=== PATIENT | male | born 1955 | race Two or more races ===

== ENCOUNTER 2019-12-23 15:38 | Inpatient (IN) | payer OTHER ==
[~2019-12-23] VITALS: Ht 170.2 cm; Wt 66.0 kg
[2019-12-23 18:56] LABS: Basophils # (auto) 0 10 ^3/uL (0-0.2); Basophils % (auto) 0.4 % (0.0-2.0); Eosinophils # (auto) 0 10 ^3/uL (0-0.8); Hematocrit 30.1 % (41.0-53.0); Hemoglobin 10.1 g/dL (13.5-17.5); Lymphocytes # (auto) 0.7 10 ^3/uL (0.4-5.4); Lymphocytes % (auto) 7.1 % (10.0-50.0); Mean Corpuscular Hemoglobin 29.6 pg (28.0-32.0); Mean Corpuscular Hgb Conc. 33.6 g/dL (32.0-36.0); Monocytes # (auto) 1.3 10 ^3/uL (0-1.3); Monocytes % (auto) 13.9 % (0.0-12.0); Neutrophils # (auto) 7.6 10 ^3/uL (1.6-8.6); Neutrophils % (auto) 78.6 % (37.0-80.0); Nucleated Red Blood Cells % 0.1 %; Platelet Count (auto) 356 10^3/uL (140-450); Red Blood Cells 3.43 10^6/uL (4.5-5.90); Red Cell Distribution Width 14.3 % (11.8-14.3); White Blood Cell 9.6 10^3/uL (4.4-10.8)
[2019-12-23 19:07] LABS: Potassium 4.1 mmol/L (3.5-5.1)
[2019-12-23 19:14] LABS: Albumin 2.4 g/dL (3.4-5.0); BUN/Creatinine Ratio 22.1; Bilirubin, Total 1.8 mg/dL (0.2-1.0); Calcium 8.1 mg/dL (8.5-10.1); Total Protein 7.5 g/dL (6.4-8.2)
[2019-12-23 23:37] LABS: INR 1.21 (0.9-1.15); Partial Thromboplastin Time 33.4 sec (23.0-31.2)
--- NOTE | 2019-12-24 00:05 | NUR ---
MS admit from ER WESLEY MATHIS admitted to [facility]. Patient oriented to ESEQUIEL CASTELAN RN primary RN, unit, room, bed, and unit policies regarding patient care and visiting hours. Explained plan of care to patient, patient verbalized understanding. Guards at bedside. Will continue to monitor.
[2019-12-24 00:10] VITALS: BP 156/79
[2019-12-24] MEDS ORDERED: LISI-275 PO (03:07)
[2019-12-24] MEDS ORDERED: AMLO5TAB15 PO (03:07)
[2019-12-24 04:41] VITALS: BP 114/69
--- NOTE | 2019-12-24 05:45 | NUR ---
Low Grade Fever Patient's temperature 100.0. Initiated cooling measures. Temperature recheck is 99.2. Guards at bedside. Will continue to monitor.
[2019-12-24 05:49] LABS: Urine Amorphous Crystal FEW /hpf (None Seen); Urine Bacteria NONE SEEN /hpf (None Seen); Urine Blood Negative /uL (Negative); Urine Mucus FEW (None Seen); Urine Specific Gravity 1.023 (1.001-1.035); Urine WBC 2 /hpf (0 - 3)
--- NOTE | 2019-12-24 07:20 | NUR ---
Paged Dr. Platt Paged Dr. Platt regarding low grade fever and possible test for COVID. Awaiting call back. Endorsed to AM nurse.
--- NOTE | 2019-12-24 07:30 | NUR ---
Opening Shift Note: Assumed care of patient, awake and alert. No S/S of distress/SOB or pain. Bed in lowest locked position, side rails up x 2, call light within reach. Guards at bedside. Patient instructed on POC and to call for assist PRN, will continue to monitor for changes Q1hr and PRN.
--- NOTE | 2019-12-24 07:45 | NUR ---
Spoke with gas charger Chris regarding protocol for covid testing.
[2019-12-24 08:06] LABS: Albumin 2.2 g/dL (3.4-5.0); BUN/Creatinine Ratio 25.7; Calcium 7.9 mg/dL (8.5-10.1); Potassium 4.1 mmol/L (3.5-5.1)
[2019-12-24 08:09] LABS: Bilirubin, Total 1.3 mg/dL (0.2-1.0); Total Protein 6.9 g/dL (6.4-8.2)
[2019-12-24 08:55] VITALS: BP 130/80
[2019-12-24] MEDS ORDERED: amLODIPine BESYLATE 5 MG TAB PO ONE (09:00)
[2019-12-24] MEDS ORDERED: LISINOPRIL 10 MG TAB PO ONE (09:00)
[2019-12-24] MEDS ORDERED: ACETAMINOPHEN 325 MG TAB PO PRN (09:00)
--- NOTE | 2019-12-24 09:01 | NUR ---
Received call from Dr. Platt. New orders received, read back and verified.
[2019-12-24 12:34] VITALS: BP 108/68
--- NOTE | 2019-12-24 14:08 | NUR ---
Nutrition Assessment/Consult Notes Please refer to link for full assessment notes. Est Energy needs: [id number] kcals (23-25 kcal/kgBW) Est Protein needs: 52-65 gms/day (0.8-1.0 gm/kgBW) Will continue to monitor and reassess prn. Addendum: 12/24/19 at [address] Amended: Links added.
[2019-12-24] MEDS ORDERED: PHYTONADIONE (VIT K)10 MG/ML 1ML VIAL SUBCUT ONE (15:45)
[2019-12-24 16:32] VITALS: BP 123/79
--- NOTE | 2019-12-24 18:45 | NUR ---
CLOSING NOTE: Patient resting in bed. No S/S of pain or distress at this time. Guards at bedside. Care endorsed to NOC RN.
--- NOTE | 2019-12-24 20:00 | NUR ---
Opening Shift Note Assumed care of patient, awake and alert. No S/S of distress/SOB or pain. Instructed on POC and to call for assist PRN, will continue to monitor for changes Q1hr and PRN.
[2019-12-24] MEDS: PANTOPRAZOLE 40 MG TAB PO SCH (21:19)
[2019-12-24] MEDS: ACETAMINOPHEN 325 MG TAB PO PRN (21:45)
[2019-12-24 22:00] VITALS: BP 114/68
--- NOTE | 2019-12-24 22:00 | NUR ---
Given a lot of ice chips and cooling measures to lower temperature.
[2019-12-25 05:00] VITALS: BP 107/45
[2019-12-25] MEDS: ACETAMINOPHEN 325 MG TAB PO PRN (05:03)
[2019-12-25 05:47] LABS: INR 1.09 (0.9-1.15)
--- NOTE | 2019-12-25 07:22 | NUR ---
Report given to Osiris Belle, and to to tell the doctor , no pain med for level 7-10
--- NOTE | 2019-12-25 07:30 | NUR ---
Opening Shift Note: Assumed care of patient, awake and alert. No S/S of distress/SOB or pain. Bed in lowest locked position, side rails up x 2, call light within reach. Guards at bedside. Patient instructed on POC and to call for assistance PRN, will continue to monitor for changes Q1hr and PRN.
[2019-12-25 08:44] VITALS: BP 113/70
[2019-12-25] MEDS: PANTOPRAZOLE 40 MG TAB PO SCH ×2 (09:55→21:29)
[2019-12-25 13:00] VITALS: BP 110/64
[2019-12-25] MEDS ORDERED: HYDROcodone-ACET 10/325MG TAB PO PRN (16:45)
[2019-12-25 17:00] VITALS: BP 118/72
--- NOTE | 2019-12-25 18:46 | NUR ---
CLOSING NOTE: Patient resting in bed. No S/S of distress. guards at bedside. Care endorsed to NOC RN
[2019-12-25 21:39] VITALS: BP 116/77
[2019-12-26 05:00] VITALS: BP 109/64
--- NOTE | 2019-12-26 07:20 | NUR ---
Opening Shift Note: Assumed care of patient, awake and alert. No S/S of distress/SOB or pain. Bed in lowest locked position, side rails up x 2,call light within reach. Patient instructed on POC and to callfor assist PRN, will continue to monitor for changes Q1hr and PRN.
[2019-12-26 09:00] VITALS: BP 134/82
[2019-12-26] MEDS: PANTOPRAZOLE 40 MG TAB PO SCH ×2 (09:32→22:25)
[2019-12-26] MEDS ORDERED: GADOTERIDOL 279.3mg/mL 20ml Vial IV ONE (12:29)
[2019-12-26 13:00] VITALS: BP 104/65
[2019-12-26 17:00] VITALS: BP 120/77
--- NOTE | 2019-12-26 18:50 | NUR ---
CLOSING NOTE: patient resting in bed. No S/S of distress. guards at bedside Care endorsed.
[2019-12-26 21:49] VITALS: BP 107/71
[2019-12-27 05:00] VITALS: BP 122/64
[2019-12-27] MEDS: PANTOPRAZOLE 40 MG TAB PO SCH ×2 (10:15→22:16)
[2019-12-27] MEDS: HYDROcodone-ACET 10/325MG TAB PO PRN (12:14)
--- NOTE | 2019-12-27 14:14 | NUR ---
Nutrition Followup Note Wt 66.0kg Pt was resting in bed with guards at bedside at time of rounds. Pt with a mass on liver requiring higher level of care per MD note. Pt is on a regular diet with a good appetite aeb pt with 94% po intake x 2 days per Rn note. Est Energy needs: [id number] kcals (23-25 kcal/kgBW) Est Protein needs: 52-65 gms/day (0.8-1.0 gm/kgBW) Will continue to monitor and reassess prn. Labs: Alb 2.2L, Ca 7.9L, BUN 19H BM: pt with 1 BM 12/25 per RN note Skin: BS 19 low risk, full details in special needs caregiver note PES: Altered nutrition related lab values r/t current medical condition aeb elev LFTs, hyperbilirubinemia, severe hypoalbuminemia Comments Will continue to monitor PO status, skin status, pertinent labs and weight trends. Will f/u in 3-5 days. 1) Continue to carefully monitor pt PO intake to meet at least 75% of meals 2) If albumin continues trending down consider Prostat 1 pkt BID 3) Continue current plan of care Expected Outcomes/Goals: Pt appetite to meet at least 75% PO intake Pt labs to improve
[2019-12-27 22:00] VITALS: BP 135/80
[2019-12-28 05:00] VITALS: BP 126/63
[2019-12-28 09:00] VITALS: BP 120/75
[2019-12-28] MEDS: PANTOPRAZOLE 40 MG TAB PO SCH (10:07)
[2019-12-28 12:57] VITALS: BP 138/86
[2019-12-28] MEDS: HYDROcodone-ACET 10/325MG TAB PO PRN (17:37)
--- NOTE | 2019-12-28 17:38 | NUR ---
Discharge Went over all discharge paperwork with patient. Answered questions. Removed IV intact, no problems. Removed ID band. Not a telemetry patient. Informed guards that patient is ready to go. Informed patient that in report they mentioned following up with [facility] for further care. Patient verbalized understanding.
== END 2019-12-28 18:40 | DRG 436 ==
LOC: ER 15:38 → EEVIPCON 15:39 → OVERFLOW 15:39 → WEST WING 23:49
PROVIDERS: ADMIT Internal Medicine; ATTEND Internal Medicine
DX: C22.0 Liver cell carcinoma (principal); E44.0 Moderate protein-calorie malnutrition; R16.0 Hepatomegaly, not elsewhere classified; N40.0 Benign prostatic hyperplasia without lower urinary tract symptoms; J44.9 Chronic obstructive pulmonary disease, unspecified; R63.4 Abnormal weight loss; K74.69 Other cirrhosis of liver; I10 Essential (primary) hypertension; B18.2 Chronic viral hepatitis C; Z87.891 Personal history of nicotine dependence; N20.0 Calculus of kidney; Z80.0 Family history of malignant neoplasm of digestive organs; Z20.828 Contact with and (suspected) exposure to other viral communicable diseases; Z68.22 Body mass index [BMI] 22.0-22.9, adult
CPT/HCPCS: 36415; 74176; 74183; 76705; 80053; 81001; 82105; 82140; 82150; 82378; 83605; 83690; 85025; 85610; 85730; 86301; 87426; G0378; J3430

== ENCOUNTER 2020-02-08 14:43 | Inpatient (IN) | payer OTHER ==
[~2020-02-08] VITALS: Ht 172.7 cm; Wt 57.0 kg
[~2020-02-08 14:43] MED LIST: AMLO5TAB15 PO; LISI-275 PO
[2020-02-08] MEDS ORDERED: AMLO5TAB15 PO (17:06)
[2020-02-08] MEDS ORDERED: OXY5T PO (17:06)
[2020-02-08] MEDS ORDERED: CHOL100046 PO (17:06)
[2020-02-08] MEDS ORDERED: ASPI-543 PO (17:06)
[2020-02-08] MEDS ORDERED: OMEP20TA PO (17:06)
[2020-02-08] MEDS ORDERED: LACT10PA2 PO (17:06)
[2020-02-08] MEDS ORDERED: LISI-648 PO (17:06)
[2020-02-08 17:12] LABS: Basophils # (auto) 0 10 ^3/uL (0-0.2); Basophils % (auto) 0.3 % (0.0-2.0); Eosinophils # (auto) 0 10 ^3/uL (0-0.8); Hematocrit 31.4 % (41.0-53.0); Hemoglobin 10.3 g/dL (13.5-17.5); Lymphocytes # (auto) 0.7 10 ^3/uL (0.4-5.4); Lymphocytes % (auto) 7.9 % (10.0-50.0); Mean Corpuscular Hemoglobin 28.3 pg (28.0-32.0); Mean Corpuscular Hgb Conc. 32.9 g/dL (32.0-36.0); Mean Corpuscular Volume 86.1 fL (80.0-100.0); Monocytes # (auto) 1.1 10 ^3/uL (0-1.3); Monocytes % (auto) 12.5 % (0.0-12.0); Neutrophils % (auto) 79.3 % (37.0-80.0); Nucleated Red Blood Cells % 0.1 %; Platelet Count (auto) 316 10^3/uL (140-450); Red Blood Cells 3.65 10^6/uL (4.5-5.90); Red Cell Distribution Width 18.3 % (11.8-14.3); White Blood Cell 8.8 10^3/uL (4.4-10.8)
[2020-02-08 17:26] LABS: Potassium 4.5 mmol/L (3.5-5.1); Sodium 129 mmol/L (136-145)
[2020-02-08 17:31] LABS: Alanine Aminotransferase 66 U/L (16-61); Albumin 2.2 g/dL (3.4-5.0); Amylase 26 U/L (25-115); BUN/Creatinine Ratio 23.8; Blood Urea Nitrogen 30 mg/dL (7-18); Calcium 8.8 mg/dL (8.5-10.1); Carbon Dioxide 21 mmol/L (21-32); GFR African American 74 mL/min; GFR Non-African American 61 mL/min; Glucose 92 mg/dL (74-106); Lipase 96 U/L (73-393); Magnesium 2.4 mg/dL (1.6-2.6)
[2020-02-08 17:40] LABS: Alkaline Phosphatase 401 U/L (45-117); Aspartate Aminotransferase 1366 U/L (15-37); Bilirubin, Total 2.2 mg/dL (0.2-1.0); Total Protein 7.6 g/dL (6.4-8.2)
[2020-02-08 17:58] LABS: Anion Gap 12 (5-15); Chloride 96 mmol/L (98-107)
[2020-02-08] MEDS ORDERED: OMEPRAZOLE 20MG/10ML ORAL SUSP GT ONE (21:30)
[2020-02-08 22:55] VITALS: BP 139/73
--- NOTE | 2020-02-08 23:30 | NUR ---
MST admit from ER WESLEY MATHIS admitted to [facility] unit after SBAR received. Patient oriented to Thomas mejia RN, unit, room 214, bed B, and unit policies regarding patient care and visiting hours. Patient VS taken, weighed by bedscale and encouraged to call if they need something. All questions and concerns addressed, patient verbalized understanding. Guards at bedside.
[2020-02-09] MEDS: LACTULOSE 20Gm/30ML SOLN PO SCH ×4 (00:11→21:49)
[2020-02-09] MEDS: oxyCODONE HCL 5MG TAB PO SCH ×3 (00:11→21:49)
[2020-02-09] MEDS: D5W/SOD CHL 0.45% 1,000 ML IV SCH ×4 (00:11→17:30)
[2020-02-09] MEDS: PHYTONADIONE (VIT K)10 MG/ML 1ML VIAL SUBCUT SCH ×2 (00:12→10:49)
[2020-02-09 05:00] VITALS: BP 125/79
[2020-02-09 06:44] LABS: Basophils # (auto) 0 10 ^3/uL (0-0.2); Basophils % (auto) 0.2 % (0.0-2.0); Eosinophils # (auto) 0 10 ^3/uL (0-0.8); Eosinophils % (auto) 0.1 % (0.0-7.0); Hematocrit 31.7 % (41.0-53.0); Hemoglobin 10.5 g/dL (13.5-17.5); Lymphocytes # (auto) 0.7 10 ^3/uL (0.4-5.4); Lymphocytes % (auto) 8.1 % (10.0-50.0); Mean Corpuscular Hemoglobin 28.5 pg (28.0-32.0); Mean Corpuscular Hgb Conc. 33.1 g/dL (32.0-36.0); Mean Corpuscular Volume 86.1 fL (80.0-100.0); Monocytes % (auto) 11.9 % (0.0-12.0); Neutrophils # (auto) 6.7 10 ^3/uL (1.6-8.6); Neutrophils % (auto) 79.7 % (37.0-80.0); Platelet Count (auto) 298 10^3/uL (140-450); Red Blood Cells 3.68 10^6/uL (4.5-5.90); Red Cell Distribution Width 18.1 % (11.8-14.3); White Blood Cell 8.4 10^3/uL (4.4-10.8)
[2020-02-09 07:04] LABS: Calcium 8.7 mg/dL (8.5-10.1); Potassium 3.9 mmol/L (3.5-5.1)
[2020-02-09 07:15] LABS: Albumin 2.4 g/dL (3.4-5.0); BUN/Creatinine Ratio 26.2; Bilirubin, Total 2.1 mg/dL (0.2-1.0); Total Protein 7.8 g/dL (6.4-8.2)
[2020-02-09 07:18] LABS: INR 1.15 (0.9-1.15); Partial Thromboplastin Time 33.6 sec (23.0-31.2)
[2020-02-09 08:55] VITALS: BP 137/83
[2020-02-09] MEDS: CHOLECALCIFEROL (VITD3) 2,000 UNIT CAP PO SCH (10:00)
[2020-02-09] MEDS: FAMOTIDINE 20 MG TAB PO SCH (10:00)
[2020-02-09] MEDS: LISINOPRIL 10 MG TAB PO SCH (10:48)
[2020-02-09] MEDS: amLODIPine BESYLATE 5 MG TAB PO SCH (10:49)
--- NOTE | 2020-02-09 11:50 | NUR ---
Nutrition Assessment/consult Notes please see attached link for complete assessment Est Energy needs IBW 70 [id number] kcals (25-30 kcal/kgIBW), Est Protein needs: 70-84 gms/day (1.0-1.2 gm/kgIBW). Will continue to monitor and reassess prn. Addendum: 02/09/20 at [address] Amended: Links added.
[2020-02-09 11:51] LABS: Urine Bacteria NONE SEEN /hpf (None Seen); Urine Blood Negative /uL (Negative); Urine Hyaline Cast MANY /lpf (0 - 2); Urine Mucus FEW (None Seen); Urine Specific Gravity 1.021 (1.001-1.035); Urine WBC 14 /hpf (0 - 3)
[2020-02-09 12:58] VITALS: BP 143/80
--- NOTE | 2020-02-09 15:16 | NUR ---
PATIENT WAS NOT RECEPTIVE TO P.T. EVALUATION TODAY. ATTEMPT P.T. TOMORROW.
[2020-02-09 16:35] VITALS: BP 139/81
--- NOTE | 2020-02-09 19:20 | NUR ---
Opening Shift Note Assumed care of patient after receiving report from EJ Fraire. Patient is awake and alert with no S/S of distress/SOB or pain. Call light within reach, bed in lowest locked position x2 side rails, gaurds at bedside. Instructed on POC and to call for assist PRN, will continue to monitor for changes Q1hr and PRN.
[2020-02-09 22:00] VITALS: BP 126/81
[2020-02-10] VITALS (9 sets, daily range): BP systolic 113–135; BP diastolic 58–79
[2020-02-10] MEDS: D5W/SOD CHL 0.45% 1,000 ML IV SCH ×4 (00:28→22:59)
--- NOTE | 2020-02-10 05:10 | NUR ---
CHG wipes and complete linen change performed. Patient ambulated to bathroom at this time and is currently still in bathroom attempting to have BM. Will continue to monitor and log hooker IV fluids when patient returns to bed.
[2020-02-10] MEDS: LACTULOSE 20Gm/30ML SOLN PO SCH ×4 (06:00→22:59)
--- NOTE | 2020-02-10 06:04 | NUR ---
Patient still in bathroom at this time. Patient stated he felt like he might have to have a BM. Patient instructed to call for assistance and when back in bed.
[2020-02-10 07:03] LABS: INR 1.11 (0.9-1.15); Partial Thromboplastin Time 32.1 sec (23.0-31.2)
--- NOTE | 2020-02-10 07:30 | NUR ---
Opening Shift Note RECEIVED REPORT FROM NOC RN. Assumed care of patient, awake and alert. No S/S of distress/SOB or pain. BED IN LOWEST, LOCKED POSITION WITH SIDERAILS UP x2 AND CALL LIGHT WITHIN REACH. Instructed on POC and to call for assist PRN, will continue to monitor for changes Q1hr and PRN.
[2020-02-10] MEDS: PHYTONADIONE (VIT K)10 MG/ML 1ML VIAL SUBCUT SCH (10:00)
[2020-02-10] MEDS: oxyCODONE HCL 5MG TAB PO SCH ×2 (10:00→23:00)
[2020-02-10] MEDS: amLODIPine BESYLATE 5 MG TAB PO SCH (10:00)
[2020-02-10] MEDS: LISINOPRIL 10 MG TAB PO SCH (10:00)
[2020-02-10] MEDS: FAMOTIDINE 20 MG TAB PO SCH (10:00)
[2020-02-10] MEDS: CHOLECALCIFEROL (VITD3) 2,000 UNIT CAP PO SCH (10:00)
[2020-02-10] MEDS ORDERED: LIDOCAINE 2%HCL (LOCAL ANESTH.) INJ 20ML MDV ONE (10:54)
[2020-02-10] MEDS ORDERED: GELATIN 1 SPONGE SIZE 50 TOP ONE (10:59)
[2020-02-10] MEDS ORDERED: fentaNYL CITRATE 100 MCG/2 ML VL ONE (11:11)
[2020-02-10] MEDS ORDERED: MIDAZOLAM HCL 1MG/1ML-2 ML VIAL ONE (11:11)
--- NOTE | 2020-02-10 11:12 | NUR ---
MEDICATIONS PULLED FOR RADIOLOGY PROCEDURE
[2020-02-10] MEDS: Ensure HIGH Protein Chocolate 8oz Bottle PO SCH ×2 (17:55→23:00)
--- NOTE | 2020-02-10 20:00 | NUR ---
Opening Shift Note Assumed care of patient. Awake, alert and oriented x4. No S/S of distress/SOB or pain at this time. Pt is on room air with even and unlabored respirations. Instructed on POC and to call for assist PRN. Bed locked, in lowest position, call light within reach, side rails up x2. Will continue to monitor for changes Q1hr and PRN.
[2020-02-11] MEDS: D5W/SOD CHL 0.45% 1,000 ML IV SCH ×4 (03:10→23:05)
[2020-02-11 05:00] VITALS: BP 116/74
[2020-02-11] MEDS: LACTULOSE 20Gm/30ML SOLN PO SCH ×3 (05:58→22:31)
[2020-02-11] MEDS: Ensure HIGH Protein Chocolate 8oz Bottle PO SCH ×2 (05:58→12:00)
[2020-02-11 06:23] LABS: Basophils # (auto) 0 10 ^3/uL (0-0.2); Basophils % (auto) 0.3 % (0.0-2.0); Eosinophils # (auto) 0 10 ^3/uL (0-0.8); Eosinophils % (auto) 0.1 % (0.0-7.0); Hemoglobin 9.5 g/dL (13.5-17.5); Lymphocytes # (auto) 0.8 10 ^3/uL (0.4-5.4); Lymphocytes % (auto) 11.2 % (10.0-50.0); Mean Corpuscular Hemoglobin 28.4 pg (28.0-32.0); Mean Corpuscular Hgb Conc. 32.7 g/dL (32.0-36.0); Mean Corpuscular Volume 86.7 fL (80.0-100.0); Monocytes # (auto) 0.9 10 ^3/uL (0-1.3); Monocytes % (auto) 12.7 % (0.0-12.0); Neutrophils # (auto) 5.4 10 ^3/uL (1.6-8.6); Neutrophils % (auto) 75.7 % (37.0-80.0); Nucleated Red Blood Cells % 0.1 %; Platelet Count (auto) 268 10^3/uL (140-450); Red Blood Cells 3.34 10^6/uL (4.5-5.90); White Blood Cell 7.2 10^3/uL (4.4-10.8)
[2020-02-11 06:37] LABS: Potassium 3.7 mmol/L (3.5-5.1)
[2020-02-11 06:38] LABS: INR 1.15 (0.9-1.15); Partial Thromboplastin Time 34.2 sec (23.0-31.2)
[2020-02-11 06:44] LABS: BUN/Creatinine Ratio 23.9; Bilirubin, Total 1.8 mg/dL (0.2-1.0); Total Protein 6.5 g/dL (6.4-8.2)
--- NOTE | 2020-02-11 07:02 | NUR ---
Closing shift note No S/S of distress, SOB or pain noted. Will endorse care to day shift RN
[2020-02-11 09:00] VITALS: BP 120/80
[2020-02-11] MEDS: FAMOTIDINE 20 MG TAB PO SCH (10:10)
[2020-02-11] MEDS: oxyCODONE HCL 5MG TAB PO SCH ×2 (10:10→22:32)
[2020-02-11] MEDS: LISINOPRIL 10 MG TAB PO SCH (10:11)
[2020-02-11] MEDS: amLODIPine BESYLATE 5 MG TAB PO SCH (10:11)
[2020-02-11] MEDS: PHYTONADIONE (VIT K)10 MG/ML 1ML VIAL SUBCUT SCH (10:12)
--- NOTE | 2020-02-11 11:46 | NUR ---
Patient c/o of abdominal pain /, abdomen is large and a bit tender. He also c/o hiccup and nausea. Dr. Perry paged awaiting to call back.
[2020-02-11 13:00] VITALS: BP 126/78
[2020-02-11] MEDS: CHOLECALCIFEROL (VITD3) 2,000 UNIT CAP PO SCH (14:02)
--- NOTE | 2020-02-11 14:09 | NUR ---
Nutrition Followup Note Wt 63.7kg Pt was sleeping with guards at bedside at time of rounds. Pt is with a Regular diet with 75% of one meal per Rn note. Pt was NPO 02/08 and 02/09 per RN note. WIll continue to monitor po intake and tolerance of diet. Est Energy needs IBW 70 [id number] kcals (25-30 kcal/kgIBW), Est Protein needs: 70-84 gms/day (1.0-1.2 gm/kgIBW). Will continue to monitor and reassess prn. Labs: Na 127L, BUN 22H, Ca 8.0L, Alb 2.0L BM: Pt with no BM noted per RN note Skin: BS 20 low risk, full details in skin care specialist note. PES: Altered nutrition related lab values r.t current chronic medical conidtion aeb hyperbil mod hypoalb Partially resolved, pt no longer NPO: Increased nutrient needs r/t chronic medical conidtion aeb pt`s underwt and with cancer NPO Comments 1) consider ensure enlive 1 carton tid 2) continue current plan of care Expected Outcomes/Goals: pt will have improved labs pt will not losse any more wt F/u 3-5 days
[2020-02-11 16:44] VITALS: BP 130/76
[2020-02-11] MEDS: ENSURE CLEAR Apple 8oz Carton PO SCH ×2 (18:00→22:32)
--- NOTE | 2020-02-11 19:56 | NUR ---
Opening Shift Note Assumed care of patient. Awake, alert and oriented x4. No S/S of distress/SOB or pain. Instructed on POC and to call for assist PRN. Bed locked, in lowest position, call light within reach, side rails up x2. Will continue to monitor for changes Q1hr and PRN.
[2020-02-11 22:00] VITALS: BP 129/71
[2020-02-11] MEDS: ONDANSETRON HCL 4 MG/2 ML VIAL IV PRN (23:34)
--- NOTE | 2020-02-11 23:35 | NUR ---
IV insertion IV access obtained, via clean sterile technique by inserting 22 gauge catheter at left forearm after 1 attempt. IV secured properly. No trauma to site. Patient tolerated procedure well.
[2020-02-12 05:00] VITALS: BP 119/75
[2020-02-12] MEDS: D5W/SOD CHL 0.45% 1,000 ML IV SCH ×3 (05:52→17:27)
[2020-02-12] MEDS: LACTULOSE 20Gm/30ML SOLN PO SCH ×3 (06:09→22:49)
[2020-02-12] MEDS: ONDANSETRON HCL 4 MG/2 ML VIAL IV PRN ×2 (06:10→22:50)
[2020-02-12] MEDS: ENSURE CLEAR Apple 8oz Carton PO SCH ×4 (06:10→22:49)
[2020-02-12 09:00] VITALS: BP 132/82
[2020-02-12] MEDS: LISINOPRIL 10 MG TAB PO SCH (09:56)
[2020-02-12] MEDS: amLODIPine BESYLATE 5 MG TAB PO SCH (09:56)
[2020-02-12] MEDS: oxyCODONE HCL 5MG TAB PO SCH ×2 (09:56→22:50)
[2020-02-12] MEDS: CHOLECALCIFEROL (VITD3) 1,000UNIT=25mCg TAB PO SCH (09:56)
[2020-02-12] MEDS: FAMOTIDINE 20 MG TAB PO SCH (09:56)
[2020-02-12] MEDS: PHYTONADIONE (VIT K)10 MG/ML 1ML VIAL SUBCUT SCH (10:04)
[2020-02-12 12:38] VITALS: BP 118/73
[2020-02-12 17:20] VITALS: BP 129/74
--- NOTE | 2020-02-12 19:00 | NUR ---
Opening Shift Note Assumed care of patient, awake and alert. No S/S of distress/SOB or pain. Instructed on POC and to call for assist PRN, will continue to monitor for changes Q1hr and PRN.
[2020-02-12 22:06] VITALS: BP 117/69
[2020-02-13] MEDS: D5W/SOD CHL 0.45% 1,000 ML IV SCH ×4 (01:30→16:22)
[2020-02-13 05:31] VITALS: BP 126/73
[2020-02-13] MEDS: LACTULOSE 20Gm/30ML SOLN PO SCH ×3 (06:22→22:00)
[2020-02-13] MEDS: ENSURE CLEAR Apple 8oz Carton PO SCH ×4 (06:23→22:06)
[2020-02-13 09:00] VITALS: BP 119/71
--- NOTE | 2020-02-13 09:00 | NUR ---
Hold PT, pt does not want to participate today due to nausea. RN aware.
[2020-02-13] MEDS: CHOLECALCIFEROL (VITD3) 1,000UNIT=25mCg TAB PO SCH (09:05)
[2020-02-13] MEDS: FAMOTIDINE 20 MG TAB PO SCH (09:05)
[2020-02-13] MEDS: LISINOPRIL 10 MG TAB PO SCH (09:05)
[2020-02-13] MEDS: amLODIPine BESYLATE 5 MG TAB PO SCH (09:05)
[2020-02-13] MEDS: PHYTONADIONE (VIT K)10 MG/ML 1ML VIAL SUBCUT SCH (09:06)
[2020-02-13] MEDS: oxyCODONE HCL 5MG TAB PO SCH ×2 (09:16→22:06)
[2020-02-13] MEDS: ONDANSETRON HCL 4 MG/2 ML VIAL IV PRN ×2 (09:16→20:10)
[2020-02-13 13:00] VITALS: BP 113/67
[2020-02-13 17:00] VITALS: BP 125/78
[2020-02-13 22:00] VITALS: BP 128/79
[2020-02-14] MEDS: D5W/SOD CHL 0.45% 1,000 ML IV SCH ×3 (04:10→15:41)
[2020-02-14 05:00] VITALS: BP 135/83
[2020-02-14] MEDS: LACTULOSE 20Gm/30ML SOLN PO SCH ×3 (06:24→22:00)
[2020-02-14] MEDS: ENSURE CLEAR Apple 8oz Carton PO SCH ×4 (06:24→23:35)
[2020-02-14 06:47] LABS: Calcium 7.8 mg/dL (8.5-10.1); Potassium 3.2 mmol/L (3.5-5.1)
[2020-02-14 06:53] LABS: Albumin 2.1 g/dL (3.4-5.0); BUN/Creatinine Ratio 8.8; Bilirubin, Total 1.5 mg/dL (0.2-1.0); Total Protein 6.3 g/dL (6.4-8.2)
[2020-02-14 09:00] VITALS: BP 153/91
[2020-02-14] MEDS: FAMOTIDINE 20 MG TAB PO SCH (10:27)
[2020-02-14] MEDS: CHOLECALCIFEROL (VITD3) 1,000UNIT=25mCg TAB PO SCH (10:27)
[2020-02-14] MEDS: amLODIPine BESYLATE 5 MG TAB PO SCH (10:29)
[2020-02-14] MEDS: oxyCODONE HCL 5MG TAB PO SCH ×2 (10:29→23:36)
[2020-02-14] MEDS: LISINOPRIL 10 MG TAB PO SCH (10:30)
[2020-02-14] MEDS: PHYTONADIONE (VIT K)10 MG/ML 1ML VIAL SUBCUT SCH (11:36)
[2020-02-14 12:24] VITALS: BP 131/82
[2020-02-14 13:14] LABS: INR 1.1 (0.9-1.15); Partial Thromboplastin Time 31.4 sec (23.0-31.2)
--- NOTE | 2020-02-14 13:20 | NUR ---
Patient c/o chest discomfort. BP136/74, HR-86 RR-20 O2sat 96%. Will have EKG done and will notify .
--- NOTE | 2020-02-14 13:24 | NUR ---
EKG done and charge auditor Shanice made aware of patient's complain. Patient stated that his chest pain was almost gone.
--- NOTE | 2020-02-14 13:40 | NUR ---
Phoned Dr. Platt to notify him of patient's complain and EKG reading result. MD gave new orders. Patient voiced no further c/o chest pain at this time.
[2020-02-14] MEDS: POTASSIUM CHL 20 Meq TABLET PO ONE ×2 (14:00→15:00)
--- NOTE | 2020-02-14 14:36 | NUR ---
Nutrition Followup Note Wt 62.8kg Pt was sleeping with guards at bedside at time of rounds. Pt is with a Regular diet with 25% po x1 02/11, 25% x1 02/12 and 75%x1 / per Rn note. Pt po intake was poor aeb pt with 25%x 2 per RN note, will monitor pt po intake for pt to have >75% po. Pt is also with Ensure Clear QID. Est Energy needs IBW 70 [id number] kcals (25-30 kcal/kgIBW), Est Protein needs: 70-84 gms/day (1.0-1.2 gm/kgIBW). Will continue to monitor and reassess prn. Labs: Na 135L, BUN 6L, Creat 0.68L, Alb 2.1L, Ca 7.8L BM: Pt with 2 BMs 02/13 noted per RN note Skin: BS 18 mod risk, full details in ocular care technician note. PES: Altered nutrition related lab values r.t current chronic medical conidtion aeb hyperbil mod hypoalb Partially resolved, pt no longer NPO: Increased nutrient needs r/t chronic medical conidtion aeb pt`s underwt and with cancer NPO Comments 1) consider ensure enlive 1 carton tid 2) continue current plan of care Expected Outcomes/Goals: pt will have improved labs pt will not lose any more wt F/u 3-5 days
[2020-02-14] MEDS: ONDANSETRON HCL 4 MG/2 ML VIAL IV PRN (15:07)
[2020-02-14] MEDS ORDERED: POTASSIUM EFFERVESENT TAB 25 MEQ GT ONE (15:30)
--- NOTE | 2020-02-14 15:37 | NUR ---
Patient refused potassium effervescent tablets at this time as patient stated that he had problem swallowing pills and water today. Will try again later
[2020-02-14 16:33] VITALS: BP 133/84
--- NOTE | 2020-02-14 19:15 | NUR ---
Report given to Yaniv PAGAN Patient still unable to take po potassium ordered at this time.
--- NOTE | 2020-02-14 21:15 | NUR ---
Spoke with doctor Platt and informed him about pt's refusal to take potassium and lactulose.Tried once again to persuade patient to take his meds. Pt took potassium
[2020-02-15] MEDS: D5W/SOD CHL 0.45% 1,000 ML IV SCH ×3 (00:10→13:30)
[2020-02-15 05:00] VITALS: BP 136/87
[2020-02-15] MEDS: LACTULOSE 20Gm/30ML SOLN PO SCH ×3 (06:00→22:00)
[2020-02-15 06:23] LABS: Potassium 3.5 mmol/L (3.5-5.1)
[2020-02-15 06:38] LABS: Albumin 2.1 g/dL (3.4-5.0); BUN/Creatinine Ratio 7.1; Bilirubin, Total 1.5 mg/dL (0.2-1.0); Total Protein 6.3 g/dL (6.4-8.2)
[2020-02-15] MEDS: ENSURE CLEAR Apple 8oz Carton PO SCH ×3 (06:54→17:39)
--- NOTE | 2020-02-15 07:35 | NUR ---
Opening Shift Note: Assumed care of patient. Patient asleep at this time. No S/S of distress/SOB or pain. bed in lowest locked position, side rails up x 2, call light within reach. Guards at bedside. Patient instructed on POC and to call for assist PRN, will continue to monitor for changes Q1hr and PRN.
[2020-02-15 09:00] VITALS: BP 110/74
[2020-02-15] MEDS ORDERED: IOHEXOL 300 MG/ML 100ML BOTTLE IJ ONE (10:04)
[2020-02-15] MEDS: FAMOTIDINE 20 MG TAB PO SCH (10:09)
[2020-02-15] MEDS: amLODIPine BESYLATE 5 MG TAB PO SCH (10:09)
[2020-02-15] MEDS: CHOLECALCIFEROL (VITD3) 1,000UNIT=25mCg TAB PO SCH (10:09)
[2020-02-15] MEDS: LISINOPRIL 10 MG TAB PO SCH (10:09)
[2020-02-15] MEDS: oxyCODONE HCL 5MG TAB PO SCH (10:10)
--- NOTE | 2020-02-15 10:15 | NUR ---
patient off unit for CT scan
[2020-02-15] MEDS: PANTOPRAZOLE 40 MG/10 ML VIAL INJ IV SCH (10:28)
[2020-02-15] MEDS: chlorproMAZINE INECTION 25 MG in SODIUM CHL 0.9% 50 ML IV SCH ×3 (10:28→17:01)
[2020-02-15] MEDS: PHYTONADIONE (VIT K)10 MG/ML 1ML VIAL SUBCUT SCH (10:29)
--- NOTE | 2020-02-15 10:33 | NUR ---
Patient back to floor.
[2020-02-15 13:00] VITALS: BP 114/75
[2020-02-15 17:00] VITALS: BP 101/66
--- NOTE | 2020-02-15 18:46 | NUR ---
CLOSING NOTE: PATIENT RESTING IN BED. NO S/S OF DISTRESS. GUARDS AT BEDSIDE. CARE ENDORSED.
[2020-02-15 22:00] VITALS: BP 123/68
[2020-02-16] VITALS (7 sets, daily range): BP systolic 99–143; BP diastolic 61–83
[2020-02-16] MEDS: oxyCODONE HCL 5MG TAB PO SCH ×3 (00:46→21:47)
[2020-02-16] MEDS: ENSURE CLEAR Apple 8oz Carton PO SCH ×5 (00:47→21:47)
[2020-02-16] MEDS: chlorproMAZINE INECTION 25 MG in SODIUM CHL 0.9% 50 ML IV SCH ×7 (00:47→21:43)
[2020-02-16] MEDS: D5W/SOD CHL 0.45% 1,000 ML IV SCH ×5 (00:49→23:34)
[2020-02-16] MEDS: LACTULOSE 20Gm/30ML SOLN PO SCH ×3 (06:00→21:43)
--- NOTE | 2020-02-16 07:31 | NUR ---
closing note pt resting in semi fowlers position with HOB at 30 degrees. no s/s of pain or distress. endorsed care to Janet PAGAN.
--- NOTE | 2020-02-16 09:40 | NUR ---
BLOOD PRESSURE MEDICATIONS HELD, DR BORDEN PAGED TO NOTIFY WILL AWAIT RETURN PHONE CALL. PATIENTS BP 99/61
[2020-02-16] MEDS: LISINOPRIL 10 MG TAB PO SCH (10:00)
[2020-02-16] MEDS: amLODIPine BESYLATE 5 MG TAB PO SCH (10:00)
[2020-02-16] MEDS: PANTOPRAZOLE 40 MG/10 ML VIAL INJ IV SCH (10:15)
[2020-02-16] MEDS: PHYTONADIONE (VIT K)10 MG/ML 1ML VIAL SUBCUT SCH (10:16)
[2020-02-16] MEDS: CHOLECALCIFEROL (VITD3) 1,000UNIT=25mCg TAB PO SCH (10:16)
[2020-02-16] MEDS: POTASSIUM CHL 10 Meq TABLET PO SCH ×2 (10:16→21:47)
[2020-02-16] MEDS: FAMOTIDINE 20 MG TAB PO SCH (10:16)
--- NOTE | 2020-02-16 13:55 | NUR ---
RECEIVED CALL BACK FROM DR BORDEN PER DR BORDEN IT IS OKAY TO HOLD BP MEDICATIONS TODAY. NURSE TO CALL AGAIN TOMORROW IF BP IS LOW FOR MEDICATION HOLDS.
--- NOTE | 2020-02-16 14:08 | NUR ---
Nutrition Followup Note Wt 66.4 kg Pt was sleeping with guards and RN at bedside at time of rounds. Pt is with a Regular diet with 25% PO x2 meals per RN doc. Pt is also with Ensure Clear QID. Noted pt is with hepatocellular carcinoma, with weakness and low appetite. Suggest pt receive alternative nutrition support. If GI is accessible suggest Jevity 1.2 @ 70 ml/hr goal rate as tolerated and per MD approval. Est Energy needs IBW 70 [id number] kcals (25-30 kcal/kgIBW) Est Protein needs: 70-84 gms/day (1.0-1.2 gm/kgIBW) Will continue to monitor and reassess prn. Labs: Bili 1.5 H, AST 217 H, Alk Phos 310 H, Alb 2.1 L, Ca 8.0 L BM: Pt with 1 BM on 02/15 per RN note Skin: BS 20 low risk, full details in continuum of care manager note. PES: 1) Altered nutrition related lab values r.t current chronic medical condition aeb hyperbil mod hypoalb Partially resolved, pt no longer NPO 2) Increased nutrient needs r/t chronic medical condition aeb pt`s underwt and with cancer NPO Comments 1) Consider ensure enlive 1 carton tid (Resolved) 2) Continue current plan of care If GI is accessible, consider Jevity 1.2 @ 70ml/hr goal rate as tolerated and per MD approval
[2020-02-16] MEDS: FUROSEMIDE 20 MG TAB PO SCH (18:37)
--- NOTE | 2020-02-16 19:50 | NUR ---
Opening Shift Note Assumed care of patient. Pt is awake and alert, oriented X 4. No S/S of respiratory distress. Pt denies pain at this time. Bed is in lowest locked position, bed rails up X 2, call light is within reach. Guards are at bedside. Instructed on POC and to call for assistance PRN. Will continue to monitor for changes Q1hr and PRN.
[2020-02-17] VITALS (7 sets, daily range): BP systolic 118–126; BP diastolic 65–75
[2020-02-17] MEDS: chlorproMAZINE INECTION 25 MG in SODIUM CHL 0.9% 50 ML IV SCH ×6 (01:58→22:01)
[2020-02-17] MEDS: LACTULOSE 20Gm/30ML SOLN PO SCH ×3 (05:59→22:00)
[2020-02-17] MEDS: ENSURE CLEAR Apple 8oz Carton PO SCH ×4 (05:59→22:03)
[2020-02-17] MEDS: FUROSEMIDE 20 MG TAB PO SCH ×3 (06:00→18:00)
[2020-02-17] MEDS: D5W/SOD CHL 0.45% 1,000 ML IV SCH ×3 (06:11→17:55)
[2020-02-17 07:08] LABS: Potassium 3.8 mmol/L (3.5-5.1)
[2020-02-17 07:15] LABS: BUN/Creatinine Ratio 7.7; Bilirubin, Total 1.8 mg/dL (0.2-1.0)
[2020-02-17] MEDS: oxyCODONE HCL 5MG TAB PO SCH ×2 (10:00→22:02)
[2020-02-17] MEDS: PANTOPRAZOLE 40 MG/10 ML VIAL INJ IV SCH (11:14)
[2020-02-17] MEDS: CHOLECALCIFEROL (VITD3) 1,000UNIT=25mCg TAB PO SCH (11:15)
[2020-02-17] MEDS: POTASSIUM CHL 10 Meq TABLET PO SCH ×2 (11:15→22:03)
[2020-02-17] MEDS: FAMOTIDINE 20 MG TAB PO SCH (11:15)
[2020-02-17] MEDS: PHYTONADIONE (VIT K)10 MG/ML 1ML VIAL SUBCUT SCH (11:16)
[2020-02-17] MEDS: amLODIPine BESYLATE 5 MG TAB PO SCH (11:16)
[2020-02-17] MEDS: LISINOPRIL 10 MG TAB PO SCH (11:17)
--- NOTE | 2020-02-17 17:55 | NUR ---
THORAZINE HELD 1800 DOSE PER EMAR, PATIENT SLEEPY.
--- NOTE | 2020-02-17 19:40 | NUR ---
Opening Shift Note Assumed care of patient. Pt is awake, alert, and oriented X 4. No S/S of respiratory distress. Respirations are regular and non-labored. Pt denies pain at this time. Bed is in lowest locked position, bed rails up X 2, call light is within reach. Instructed on POC and to call for assistance as needed. Will continue to monitor for changes Q1hr and PRN.
[2020-02-18] MEDS: chlorproMAZINE INECTION 25 MG in SODIUM CHL 0.9% 50 ML IV SCH ×6 (02:25→22:29)
[2020-02-18] MEDS: D5W/SOD CHL 0.45% 1,000 ML IV SCH ×4 (03:40→21:30)
[2020-02-18 05:00] VITALS: BP 106/63
[2020-02-18] MEDS: FUROSEMIDE 20 MG TAB PO SCH ×2 (05:56→18:00)
[2020-02-18] MEDS: ENSURE CLEAR Apple 8oz Carton PO SCH ×4 (05:56→22:00)
[2020-02-18] MEDS: LACTULOSE 20Gm/30ML SOLN PO SCH ×3 (05:57→22:00)
[2020-02-18 09:00] VITALS: BP 124/76
[2020-02-18] MEDS: POTASSIUM CHL 10 Meq TABLET PO SCH ×2 (11:39→22:28)
[2020-02-18] MEDS: FAMOTIDINE 20 MG TAB PO SCH (11:39)
[2020-02-18] MEDS: amLODIPine BESYLATE 5 MG TAB PO SCH (11:40)
[2020-02-18] MEDS: LISINOPRIL 10 MG TAB PO SCH (11:41)
[2020-02-18] MEDS: PHYTONADIONE (VIT K)10 MG/ML 1ML VIAL SUBCUT SCH (11:42)
[2020-02-18] MEDS: PANTOPRAZOLE 40 MG/10 ML VIAL INJ IV SCH (11:43)
[2020-02-18 13:00] VITALS: BP 120/65
[2020-02-18] MEDS: oxyCODONE HCL 5MG TAB PO SCH ×2 (14:06→22:27)
[2020-02-18] MEDS: CHOLECALCIFEROL (VITD3) 1,000UNIT=25mCg TAB PO SCH (14:06)
[2020-02-18 17:00] VITALS: BP 111/66
--- NOTE | 2020-02-18 19:45 | NUR ---
OPENING SHIFT NOTE Assumed care of patient who is A&O x4. Currently on RA with no s/s of distress. Reports 6/10 pain in left upper quadrant. Pain management options discussed. PIV in left forearm is intact and patent. Currently infusing IVF as ordered. Metal restraints present on right wrist and bilateral ankles. Armed correctional officers present at bedside x2 for supervision. Patient is ambulatory with assistance at baseline. POC discussed and patient verbalizes understanding. Bed is in low locked position with side rails up x2. Call light is within reach and patient encouraged to call for assistance when needed. Will continue to monitor for changes PRN.
[2020-02-18 22:00] VITALS: BP 132/77
--- NOTE | 2020-02-18 22:00 | NUR ---
MEDICATION REFUSAL Patient refused scheduled dose of lactulose 15mg. Informed of the rationale for this medication however, patient continues to refuse, stating that his bloating improved when he stopped taking this medication.
--- NOTE | 2020-02-18 23:42 | NUR ---
ROUNDS patient is resting in bed with eyes closed. Respirations are even and non-labored. IVF infusing as ordered. Call light is within reach. Will continue to monitor for changes PRN.
[2020-02-19] MEDS: chlorproMAZINE INECTION 25 MG in SODIUM CHL 0.9% 50 ML IV SCH ×6 (02:07→22:00)
[2020-02-19] MEDS: D5W/SOD CHL 0.45% 1,000 ML IV SCH ×4 (03:58→22:00)
[2020-02-19 05:19] VITALS: BP 118/69
[2020-02-19] MEDS: LACTULOSE 20Gm/30ML SOLN PO SCH ×3 (05:28→22:00)
[2020-02-19] MEDS: ENSURE CLEAR Apple 8oz Carton PO SCH ×4 (05:29→22:00)
[2020-02-19] MEDS: FUROSEMIDE 20 MG TAB PO SCH ×2 (05:49→18:00)
--- NOTE | 2020-02-19 05:52 | NUR ---
MEDICATION REFUSAL Patient refused scheduled dose of Lactulose 15mg and Lasix 20mg. Patient requesting that Lasix dose be reduced due to side effect of dry mouth. Will pass on to on coming shift to notify MD of patient's request.
[2020-02-19 07:35] LABS: Potassium 3.5 mmol/L (3.5-5.1)
[2020-02-19 07:47] LABS: Albumin 1.6 g/dL (3.4-5.0); BUN/Creatinine Ratio 12.3; Bilirubin, Total 1.6 mg/dL (0.2-1.0); Calcium 7.1 mg/dL (8.5-10.1); Total Protein 5.2 g/dL (6.4-8.2)
[2020-02-19 09:00] VITALS: BP 104/61
--- NOTE | 2020-02-19 11:06 | NUR ---
Nutrition Followup Note Wt 72.7 kg (+2 edema dry wt unkwn) Pt was sleeping with guards and RN at bedside at time of rounds. Pt is with a Regular diet with inadequate PO of 50% PO x4 meals per RN doc. Pt is also with Ensure Clear QID. Est Energy needs IBW 70 [id number] kcals (25-30 kcal/kgIBW), Est Protein needs: 70-84 gms/day (1.0-1.2 gm/kgIBW). Will continue to monitor and reassess prn. Labs: CA 7.1 L, SHARON 1.6 H ALB 1.6 H BM: Pt with 1 BM today per RN note Skin: BS 18 mod risk, full details in special needs caregiver note. PES: 1) Altered nutrition related lab values r.t current chronic medical condition aeb hyperbil mod hypoalb Partially resolved, pt no longer NPO 2) Increased nutrient needs r/t chronic medical condition aeb pt`s underwt and with cancer NPO Comments: will continue to monitor PO intake, skin status. F/u mod 3-5 days Rec: 1) consider prostat 1 packet bid. 2) consider ensure Enlive 1 carton bid instead of ensure clear. 3) continue current plan of care
[2020-02-19] MEDS: CHOLECALCIFEROL (VITD3) 1,000UNIT=25mCg TAB PO SCH (11:52)
[2020-02-19] MEDS: FAMOTIDINE 20 MG TAB PO SCH (11:52)
[2020-02-19] MEDS: LISINOPRIL 10 MG TAB PO SCH (11:53)
[2020-02-19] MEDS: POTASSIUM CHL 10 Meq TABLET PO SCH ×2 (11:54→22:00)
[2020-02-19] MEDS: amLODIPine BESYLATE 5 MG TAB PO SCH (11:54)
[2020-02-19] MEDS: PHYTONADIONE (VIT K)10 MG/ML 1ML VIAL SUBCUT SCH (11:55)
[2020-02-19] MEDS: PANTOPRAZOLE 40 MG/10 ML VIAL INJ IV SCH (11:55)
[2020-02-19] MEDS: oxyCODONE HCL 5MG TAB PO SCH ×2 (12:13→22:00)
[2020-02-19 13:00] VITALS: BP 108/64
--- NOTE | 2020-02-19 14:08 | NUR ---
THORAZINE HELD 1400 DOSE PER EMAR, PATIENT SLEEPY.
[2020-02-19 17:00] VITALS: BP 123/79
--- NOTE | 2020-02-19 18:00 | NUR ---
pT. REFUSED LASIX; STATES. "IT MAKES MY MOUTH TOO DRY." THIS RN EDUCATED PT. ON THE BENEFITS OF LASIX BUT HE STILL REFUSED.
--- NOTE | 2020-02-19 18:07 | NUR ---
PT. REFUSED THORAZINE INJ. PT. STATES, "I WANT A BREAK FROM IT."
--- NOTE | 2020-02-19 19:40 | NUR ---
OPENING SHIFT NOTE Assumed care of patient who is A&O x4. Currently on RA with no s/s of distress. Reports 6/10 pain in left upper quadrant and back. Pain management options discussed. PIV in left forearm is intact and currently infusing IVF as ordered. Patient complaining of discomfort to this area. elbo noted to be pink and puffy. IVF stopped at this time. Urine in urinal at bedside noted to be [place]ia [place] in color and odorless. Metal restraints present on right wrist and bilateral ankles. Armed correctional officers present at bedside x2 for supervision. Patient is ambulatory with assistance at baseline. 3+ pitting edema noted to BLE. Discussed with patient the importance of taking Lasix as scheduled. Bed is in low locked position with side rails up x2. Call light is within reach and patient encouraged to call for assistance when needed. Will continue to monitor for changes PRN.
[2020-02-19 22:00] VITALS: BP 115/67
[2020-02-20] MEDS: chlorproMAZINE INECTION 25 MG in SODIUM CHL 0.9% 50 ML IV SCH ×6 (02:00→22:00)
--- NOTE | 2020-02-20 02:00 | NUR ---
MEDICATION HELD 0200 scheduled dose held as per JUN if patienr Addendum: 02/20/20 at 0321 by AMADOR DAVILA RN RN MEDICATION HELD 0200 scheduled dose of Thorazine held as per MAR: "Hold if patient is sleepy". Patient is asleep at this time.
[2020-02-20 04:45] VITALS: BP 114/65
[2020-02-20] MEDS: D5W/SOD CHL 0.45% 1,000 ML IV SCH ×3 (04:56→20:10)
[2020-02-20] MEDS: ENSURE CLEAR Apple 8oz Carton PO SCH ×4 (05:40→22:13)
[2020-02-20] MEDS: LACTULOSE 20Gm/30ML SOLN PO SCH ×3 (05:40→21:45)
[2020-02-20] MEDS: FUROSEMIDE 20 MG TAB PO SCH ×2 (05:53→18:00)
--- NOTE | 2020-02-20 05:53 | NUR ---
MEDICATION REFUSAL Patient refused scheduled dose of lactulose and Lasix. Patient educated on rationale for each of these medications, however patient continues to refuse stating that the Lasix causes him to have dry mouth and that he is feeling better since he stopped taking the lactulose.
[2020-02-20 07:03] LABS: Albumin 1.5 g/dL (3.4-5.0); BUN/Creatinine Ratio 10.4; Bilirubin, Total 1.3 mg/dL (0.2-1.0); Calcium 7.3 mg/dL (8.5-10.1); Total Protein 5.1 g/dL (6.4-8.2)
[2020-02-20 08:30] VITALS: BP 123/69
[2020-02-20] MEDS: POTASSIUM CHL 10 Meq TABLET PO SCH ×2 (11:15→21:44)
[2020-02-20] MEDS: FAMOTIDINE 20 MG TAB PO SCH (11:15)
[2020-02-20] MEDS: amLODIPine BESYLATE 5 MG TAB PO SCH (11:15)
[2020-02-20] MEDS: CHOLECALCIFEROL (VITD3) 1,000UNIT=25mCg TAB PO SCH (11:15)
[2020-02-20] MEDS: LISINOPRIL 10 MG TAB PO SCH (11:16)
[2020-02-20] MEDS: oxyCODONE HCL 5MG TAB PO SCH ×2 (11:17→21:44)
[2020-02-20] MEDS: PANTOPRAZOLE 40 MG/10 ML VIAL INJ IV SCH (11:17)
[2020-02-20] MEDS: PHYTONADIONE (VIT K)10 MG/ML 1ML VIAL SUBCUT SCH (11:18)
[2020-02-20 12:30] VITALS: BP 108/58
[2020-02-20 17:03] VITALS: BP 109/67
--- NOTE | 2020-02-20 19:05 | NUR ---
Opening Shift Note Assumed care of patient, awake and alert. No S/S of distress/SOB or pain. Two guards at the bedside. Side rails up X2, bed locked in lowest position, call light within reach. Instructed on POC and to call for assist PRN, will continue to monitor for changes Q1hr and PRN.
[2020-02-20 22:00] VITALS: BP 112/68
[2020-02-21] MEDS: chlorproMAZINE INECTION 25 MG in SODIUM CHL 0.9% 50 ML IV SCH ×7 (02:00→22:00)
[2020-02-21] MEDS: D5W/SOD CHL 0.45% 1,000 ML IV SCH (02:58)
[2020-02-21 05:00] VITALS: BP 117/73
[2020-02-21] MEDS: LACTULOSE 20Gm/30ML SOLN PO SCH ×4 (05:03→22:00)
[2020-02-21] MEDS: ENSURE CLEAR Apple 8oz Carton PO SCH ×4 (05:04→22:00)
[2020-02-21] MEDS: FUROSEMIDE 20 MG TAB PO SCH ×3 (05:27→10:00)
[2020-02-21 06:14] LABS: Basophils # (auto) 0 10 ^3/uL (0-0.2); Basophils % (auto) 0.5 % (0.0-2.0); Eosinophils # (auto) 0.1 10 ^3/uL (0-0.8); Eosinophils % (auto) 1.7 % (0.0-7.0); Hematocrit 25.9 % (41.0-53.0); Hemoglobin 8.5 g/dL (13.5-17.5); Lymphocytes # (auto) 0.5 10 ^3/uL (0.4-5.4); Lymphocytes % (auto) 8.1 % (10.0-50.0); Mean Corpuscular Hemoglobin 28.9 pg (28.0-32.0); Mean Corpuscular Volume 87.7 fL (80.0-100.0); Monocytes # (auto) 0.8 10 ^3/uL (0-1.3); Monocytes % (auto) 11.5 % (0.0-12.0); Neutrophils # (auto) 5.2 10 ^3/uL (1.6-8.6); Neutrophils % (auto) 78.2 % (37.0-80.0); Platelet Count (auto) 209 10^3/uL (140-450); Red Blood Cells 2.95 10^6/uL (4.5-5.90); Red Cell Distribution Width 18.7 % (11.8-14.3); White Blood Cell 6.7 10^3/uL (4.4-10.8)
[2020-02-21 06:28] LABS: INR 1.18 (0.9-1.15)
[2020-02-21 09:00] VITALS: BP 111/67
[2020-02-21] MEDS: oxyCODONE HCL 5MG TAB PO SCH ×2 (10:18→22:39)
[2020-02-21] MEDS: FAMOTIDINE 20 MG TAB PO SCH (10:18)
[2020-02-21] MEDS: CHOLECALCIFEROL (VITD3) 1,000UNIT=25mCg TAB PO SCH (10:18)
[2020-02-21] MEDS: PANTOPRAZOLE 40 MG/10 ML VIAL INJ IV SCH (10:18)
[2020-02-21] MEDS: POTASSIUM CHL 10 Meq TABLET PO SCH ×2 (10:19→10:25)
[2020-02-21] MEDS: LISINOPRIL 10 MG TAB PO SCH (10:20)
[2020-02-21] MEDS: amLODIPine BESYLATE 5 MG TAB PO SCH (10:22)
[2020-02-21] MEDS: PHYTONADIONE (VIT K)10 MG/ML 1ML VIAL SUBCUT SCH (10:23)
[2020-02-21 12:19] VITALS: BP 102/61
--- NOTE | 2020-02-21 16:11 | NUR ---
instructed me to call pathology to see when the pathology for patient would result. Called pathology twice no answer . Will pass it on to report to try again in the morning.
[2020-02-21 16:54] VITALS: BP 108/60
[2020-02-21 22:07] VITALS: BP 111/70
[2020-02-22] MEDS: chlorproMAZINE INECTION 25 MG in SODIUM CHL 0.9% 50 ML IV SCH ×6 (02:00→22:49)
[2020-02-22 05:00] VITALS: BP 117/69
[2020-02-22] MEDS: LACTULOSE 20Gm/30ML SOLN PO SCH ×3 (05:46→22:00)
[2020-02-22] MEDS: ENSURE CLEAR Apple 8oz Carton PO SCH ×4 (05:48→22:00)
[2020-02-22 07:23] LABS: Albumin 1.5 g/dL (3.4-5.0); Calcium 7.8 mg/dL (8.5-10.1); Potassium 4.1 mmol/L (3.5-5.1)
[2020-02-22 07:25] LABS: BUN/Creatinine Ratio 13.3; Bilirubin, Total 1.6 mg/dL (0.2-1.0); Total Protein 5.2 g/dL (6.4-8.2)
[2020-02-22 09:00] VITALS: BP 107/61
[2020-02-22] MEDS: PANTOPRAZOLE 40 MG/10 ML VIAL INJ IV SCH (12:00)
[2020-02-22] MEDS: LISINOPRIL 10 MG TAB PO SCH (12:01)
[2020-02-22] MEDS: amLODIPine BESYLATE 5 MG TAB PO SCH (12:01)
[2020-02-22] MEDS: FAMOTIDINE 20 MG TAB PO SCH (12:02)
[2020-02-22] MEDS: CHOLECALCIFEROL (VITD3) 1,000UNIT=25mCg TAB PO SCH (12:02)
[2020-02-22] MEDS: POTASSIUM CHL 10 Meq TABLET PO SCH (12:02)
[2020-02-22] MEDS: PHYTONADIONE (VIT K)10 MG/ML 1ML VIAL SUBCUT SCH (12:03)
[2020-02-22] MEDS: FUROSEMIDE 20 MG TAB PO SCH (12:04)
[2020-02-22] MEDS: oxyCODONE HCL 5MG TAB PO SCH ×2 (12:09→22:50)
[2020-02-22 12:54] VITALS: BP 108/61
--- NOTE | 2020-02-22 13:44 | NUR ---
Spoke to he told me that the pathology from the liver biopsy is positive for CA and that he consulted with to see how to proceed with care before discharge. has been consulted awaiting for him to visit patient.
[2020-02-22 16:32] VITALS: BP 108/63
[2020-02-22 22:00] VITALS: BP 104/60
[2020-02-23] MEDS: chlorproMAZINE INECTION 25 MG in SODIUM CHL 0.9% 50 ML IV SCH ×6 (02:00→22:00)
[2020-02-23 05:00] VITALS: BP 104/60
[2020-02-23] MEDS: LACTULOSE 20Gm/30ML SOLN PO SCH ×3 (06:00→22:00)
[2020-02-23] MEDS: ENSURE CLEAR Apple 8oz Carton PO SCH ×4 (06:00→22:00)
--- NOTE | 2020-02-23 06:21 | NUR ---
MEDICATION HELD THORAZINE HELD, PATIENT DOES NOT HAVE HICCUPS THIS MORNING.
[2020-02-23 08:00] VITALS: BP 109/66
[2020-02-23 09:00] VITALS: BP 109/66
[2020-02-23] MEDS: PANTOPRAZOLE 40 MG/10 ML VIAL INJ IV SCH (10:06)
[2020-02-23] MEDS: CHOLECALCIFEROL (VITD3) 1,000UNIT=25mCg TAB PO SCH (10:07)
[2020-02-23] MEDS: PHYTONADIONE (VIT K)10 MG/ML 1ML VIAL SUBCUT SCH (10:07)
[2020-02-23] MEDS: oxyCODONE HCL 5MG TAB PO SCH ×2 (10:07→22:52)
[2020-02-23] MEDS: LISINOPRIL 10 MG TAB PO SCH (10:08)
[2020-02-23] MEDS: FAMOTIDINE 20 MG TAB PO SCH (10:08)
[2020-02-23] MEDS: POTASSIUM CHL 10 Meq TABLET PO SCH (10:08)
[2020-02-23] MEDS: FUROSEMIDE 20 MG TAB PO SCH (10:08)
[2020-02-23] MEDS: amLODIPine BESYLATE 5 MG TAB PO SCH (10:09)
--- NOTE | 2020-02-23 10:50 | NUR ---
Pt declined AM PT treatment stating he had a "rough morning." Will attempt again later.
--- NOTE | 2020-02-23 11:51 | NUR ---
Nutrition Followup Note Wt 75.9 kg (+3 edema dry wt unkwn wt gain of 2 lb) Pt was sleeping with guards and RN at bedside at time of rounds. Pt is with a Regular diet with adequate PO of 75% PO x4 meals per RN doc. Pt is also with Ensure Clear QID. Est Energy needs IBW 70 [id number] kcals (25-30 kcal/kgIBW), Est Protein needs: 70-84 gms/day (1.0-1.2 gm/kgIBW). Will continue to monitor and reassess prn. Labs: CA 7.8 L, SHARON 1.6 H ALB 1.5 H BM: Pt with 3 BM today per RN note Skin: BS 20 mod risk, full details in respiratory care instructor note. PES: 1) Altered nutrition related lab values r.t current chronic medical condition aeb hyperbil mod hypoalb Partially resolved, pt no longer NPO 2) Increased nutrient needs r/t chronic medical condition aeb pt`s underwt and with cancer NPO Comments: will continue to monitor PO intake, skin status. F/u mod 3-5 days Rec: 1) consider prostat 1 packet bid. 2) consider ensure Enlive 1 carton bid instead of ensure clear. 3) continue current plan of care
[2020-02-23 13:00] VITALS: BP 112/60
[2020-02-23 17:00] VITALS: BP 112/70
[2020-02-23 22:00] VITALS: BP 103/58
--- NOTE | 2020-02-23 22:45 | NUR ---
IV insertion IV access obtained, via clean sterile technique by inserting 22 gauge catheter at right forearm after 2 attempt(s). IV secured properly. No trauma to site. Patient tolerated well.
--- NOTE | 2020-02-23 22:50 | NUR ---
MEDICATION HELD PATIENT STATED HE HAS HAD NO HICCUPS, THEREFORE THORAZINE HELD.
[2020-02-24] MEDS: chlorproMAZINE INECTION 25 MG in SODIUM CHL 0.9% 50 ML IV SCH ×6 (02:00→21:49)
[2020-02-24 05:00] VITALS: BP 96/56
[2020-02-24] MEDS: LACTULOSE 20Gm/30ML SOLN PO SCH ×3 (05:28→21:49)
[2020-02-24] MEDS: ENSURE CLEAR Apple 8oz Carton PO SCH ×4 (05:28→21:50)
--- NOTE | 2020-02-24 07:45 | NUR ---
Opening Shift Note Assumed care of patient, awake, alert and oriented x 4. Respirations are even and non labored on room air. No S/S of distress/SOB or pain. Bed is in the lowest and locked position with side rails up x 2 and call light within reach and 2 guards at bedside. Instructed on POC and to call for assist PRN, will continue to monitor for changes Q1hr and PRN.
--- NOTE | 2020-02-24 08:23 | NUR ---
Dr Kelley at bedside Reviewed POC and answered all questions. Will continue to monitor.
[2020-02-24 09:00] VITALS: BP 109/69
[2020-02-24] MEDS: CHOLECALCIFEROL (VITD3) 1,000UNIT=25mCg TAB PO SCH (10:06)
[2020-02-24] MEDS: FAMOTIDINE 20 MG TAB PO SCH (10:06)
[2020-02-24] MEDS: PANTOPRAZOLE 40 MG/10 ML VIAL INJ IV SCH (10:06)
[2020-02-24] MEDS: POTASSIUM CHL 10 Meq TABLET PO SCH (10:06)
[2020-02-24] MEDS: oxyCODONE HCL 5MG TAB PO SCH ×2 (10:07→21:51)
[2020-02-24] MEDS: FUROSEMIDE 20 MG TAB PO SCH (10:09)
[2020-02-24] MEDS: amLODIPine BESYLATE 5 MG TAB PO SCH (10:10)
[2020-02-24] MEDS: LISINOPRIL 10 MG TAB PO SCH (10:11)
--- NOTE | 2020-02-24 10:11 | NUR ---
Medication Held Held Thorazine, patient is not having hiccups and stated that "the thorazine just makes me sleepy."
[2020-02-24 12:22] VITALS: BP 112/66
--- NOTE | 2020-02-24 13:59 | NUR ---
PT PT REFUSED PHYSICAL THERAPY THIS AFTERNOON. . Signed: 02/24/20 at 1400 by GEOVANNI WARE PTT <Co-Signature Required> Co-Signed: 02/24/20 at 1400 by Juan Antonio Vicente PT Addendum: 02/24/20 at 1400 by GEOVANNI WARE PTT Amended: Links added.
--- NOTE | 2020-02-24 14:39 | NUR ---
Med refused/held Patient refused lactulose. He stated that he's had too many issues with diarrhea and covered his face with his hand. Held thorazine as the patient isn't having any hiccups.
[2020-02-24 16:19] VITALS: BP 110/61
--- NOTE | 2020-02-24 19:30 | NUR ---
Opening Shift Note Assumed care of patient, awake and alert. No S/S of distress/SOB. Pain management options discussed with patient. Instructed on POC and to call for assist PRN, will continue to monitor for changes Q1hr and PRN.
[2020-02-24 20:00] VITALS: BP 110/65
[2020-02-24 22:15] VITALS: BP 110/65
[2020-02-25] MEDS: chlorproMAZINE INECTION 25 MG in SODIUM CHL 0.9% 50 ML IV SCH ×6 (02:00→21:33)
[2020-02-25] MEDS: LACTULOSE 20Gm/30ML SOLN PO SCH ×3 (05:21→21:34)
[2020-02-25] MEDS: ENSURE CLEAR Apple 8oz Carton PO SCH ×5 (05:21→22:10)
--- NOTE | 2020-02-25 07:30 | NUR ---
Opening Shift Note Assumed care of patient, awake and alert. Patient is an inmate with bilateral leg restraints as well as right arm restraints. No S/S of distress/SOB. Patient presents as extremely thin and yellow tinged skin color in the face. Both legs are edematous 2+ pitting. Patient complaining of pain on the right upper quadrant. Requesting higher dose of pain meds or an increase in frequency. Will follow up with hospitalist regarding a change in medication regimen. Instructed on POC and to call for assist PRN. Bed is in lowest position and the call light is within reach of the patient. Will continue to monitor for changes Q1hr and PRN.
[2020-02-25 08:00] VITALS: BP 110/65
[2020-02-25 09:00] VITALS: BP 117/65
[2020-02-25] MEDS: PANTOPRAZOLE 40 MG/10 ML VIAL INJ IV SCH (09:51)
[2020-02-25] MEDS: FAMOTIDINE 20 MG TAB PO SCH (09:52)
[2020-02-25] MEDS: POTASSIUM CHL 10 Meq TABLET PO SCH (09:52)
[2020-02-25] MEDS: CHOLECALCIFEROL (VITD3) 1,000UNIT=25mCg TAB PO SCH (09:53)
[2020-02-25] MEDS: LISINOPRIL 10 MG TAB PO SCH (09:56)
[2020-02-25] MEDS: amLODIPine BESYLATE 5 MG TAB PO SCH (09:59)
[2020-02-25] MEDS: FUROSEMIDE 20 MG TAB PO SCH (09:59)
[2020-02-25] MEDS: oxyCODONE HCL 5MG TAB PO SCH ×2 (10:05→22:00)
--- NOTE | 2020-02-25 10:35 | NUR ---
Dr. Platt at bedside Dr. Platt at bedside. Patient sleeping.
--- NOTE | 2020-02-25 11:10 | NUR ---
Medication withheld Lasix and amlodipine held for decreased BP 117/69. Dr. Platt aware. Addendum: 02/25/20 at 1549 by Alexa Barnes RN RN Medication refused Lactulose and Thorazine am doses refused by the patient. Patient reports diarrhea and an ALOC when given. MD lopez.
--- NOTE | 2020-02-25 12:45 | NUR ---
Spoke with [employer] Dispatcher Spoke with underground production foreperson concerning a substitute to the ensure Enlive. Patient states he can't drink the supplement because he "throws it up". She suggested to double his entree amount. Called nutritional services and requested the change.
[2020-02-25 13:00] VITALS: BP 108/68
--- NOTE | 2020-02-25 14:10 | NUR ---
Patient ambulating Patient stated he felt better and wanted to walk the unit. Patient walked the unit with the assistance of a walker accompanied by 2 guards with no S/S of SOB or discomfort. Will attempt to try again in the evening.
[2020-02-25 16:47] VITALS: BP 130/79
--- NOTE | 2020-02-25 21:35 | NUR ---
Pt A&Ox4. Refusing thorazine stating that "it was for hiccoughs and I'm not hiccoughing" He also refuses lactulose and Ensure Clear stating that they are too sweet and cause him "to throw up."
[2020-02-25 22:00] VITALS: BP 109/71
[2020-02-25] MEDS: ONDANSETRON HCL 4 MG/2 ML VIAL IV PRN (22:10)
[2020-02-26] MEDS: chlorproMAZINE INECTION 25 MG in SODIUM CHL 0.9% 50 ML IV SCH ×6 (02:00→21:47)
[2020-02-26 05:00] VITALS: BP 114/67
[2020-02-26] MEDS: ENSURE CLEAR Apple 8oz Carton PO SCH ×4 (06:00→21:47)
[2020-02-26] MEDS: LACTULOSE 20Gm/30ML SOLN PO SCH ×3 (06:00→21:47)
[2020-02-26] MEDS: ONDANSETRON HCL 4 MG/2 ML VIAL IV PRN (06:11)
--- NOTE | 2020-02-26 07:46 | NUR ---
Opening Shift Note Prisoner patient. Assumed care of patient, awake and alert, A/O X 4. No S/S of distress/SOB or pain at this time. shift production supervisor reported a panic attack this morning and applied a NC on the patient with 2-3L. Patient has NC in place O2 titrated down to 2L. Patient appears calm and relaxed with no signs of anxiety or restlessness. Markings noted around the ankles from the cuffs. Socks applied to help protect skin from pressing into edematous ankles. Instructed on POC including walking the unit and sitting in the bedside chair. Patient verbalized understanding. Instructed to call for assist PRN. Bed is in lowest position and the call light is within reach of the patient. Will continue to monitor for changes Q1hr and PRN.
[2020-02-26 09:00] VITALS: BP 104/65
[2020-02-26] MEDS: PANTOPRAZOLE 40 MG/10 ML VIAL INJ IV SCH (09:56)
[2020-02-26] MEDS: POTASSIUM CHL 10 Meq TABLET PO SCH (09:57)
[2020-02-26] MEDS: oxyCODONE HCL 5MG TAB PO SCH ×2 (09:57→21:47)
[2020-02-26] MEDS: FUROSEMIDE 20 MG TAB PO SCH (09:58)
[2020-02-26] MEDS: FAMOTIDINE 20 MG TAB PO SCH (09:58)
[2020-02-26] MEDS: CHOLECALCIFEROL (VITD3) 1,000UNIT=25mCg TAB PO SCH (09:58)
[2020-02-26] MEDS: LISINOPRIL 10 MG TAB PO SCH (10:00)
[2020-02-26] MEDS: amLODIPine BESYLATE 5 MG TAB PO SCH (10:00)
--- NOTE | 2020-02-26 10:28 | NUR ---
Medication refused and withheld Thorazine and ensure refused by the patient. Lisinopril and amlodipine withheld for low BP 104/65. made aware. Addendum: 02/26/20 at 1427 by Alexa Barnes RN RN 1400 Lactulose also refused by the patient.
--- NOTE | 2020-02-26 12:30 | NUR ---
Patient up with PT Patient got up with PT and walked the unit with the assist of a walker. Patient tolerated it well. No complaints of pain or distress.
[2020-02-26 13:00] VITALS: BP 106/66
[2020-02-26 17:00] VITALS: BP 106/71
[2020-02-26 22:00] VITALS: BP 108/71
[2020-02-27] MEDS: chlorproMAZINE INECTION 25 MG in SODIUM CHL 0.9% 50 ML IV SCH ×6 (01:40→22:00)
[2020-02-27] MEDS: LACTULOSE 20Gm/30ML SOLN PO SCH ×3 (05:40→22:00)
[2020-02-27 05:41] VITALS: BP 104/60
[2020-02-27] MEDS: ENSURE CLEAR Apple 8oz Carton PO SCH ×4 (05:41→22:00)
[2020-02-27 08:00] VITALS: BP 100/55
--- NOTE | 2020-02-27 08:30 | NUR ---
Dr Platt on unit.
[2020-02-27 09:00] VITALS: BP 100/55
[2020-02-27] MEDS: POTASSIUM CHL 10 Meq TABLET PO SCH (09:59)
[2020-02-27] MEDS: PANTOPRAZOLE 40 MG/10 ML VIAL INJ IV SCH (09:59)
[2020-02-27] MEDS: FUROSEMIDE 20 MG TAB PO SCH (10:00)
[2020-02-27] MEDS: amLODIPine BESYLATE 5 MG TAB PO SCH (10:01)
[2020-02-27] MEDS: CHOLECALCIFEROL (VITD3) 1,000UNIT=25mCg TAB PO SCH (10:01)
[2020-02-27] MEDS: FAMOTIDINE 20 MG TAB PO SCH (10:01)
[2020-02-27] MEDS: LISINOPRIL 10 MG TAB PO SCH (10:02)
[2020-02-27] MEDS: oxyCODONE HCL 5MG TAB PO SCH ×2 (10:20→22:01)
[2020-02-27 13:00] VITALS: BP 103/37
[2020-02-27 17:00] VITALS: BP 100/60
[2020-02-27 22:00] VITALS: BP 108/61
[2020-02-28] MEDS: chlorproMAZINE INECTION 25 MG in SODIUM CHL 0.9% 50 ML IV SCH ×6 (01:46→21:50)
[2020-02-28 05:00] VITALS: BP 113/71
[2020-02-28] MEDS: LACTULOSE 20Gm/30ML SOLN PO SCH ×3 (06:00→21:20)
[2020-02-28] MEDS: ENSURE CLEAR Apple 8oz Carton PO SCH ×4 (06:00→21:50)
[2020-02-28 06:57] LABS: Basophils # (auto) 0.1 10 ^3/uL (0-0.2); Basophils % (auto) 1.2 % (0.0-2.0); Eosinophils # (auto) 0 10 ^3/uL (0-0.8); Eosinophils % (auto) 0.8 % (0.0-7.0); Hematocrit 25.9 % (41.0-53.0); Hemoglobin 8.6 g/dL (13.5-17.5); Lymphocytes # (auto) 0.6 10 ^3/uL (0.4-5.4); Lymphocytes % (auto) 14.4 % (10.0-50.0); Mean Corpuscular Hemoglobin 29.3 pg (28.0-32.0); Mean Corpuscular Hgb Conc. 33.2 g/dL (32.0-36.0); Mean Corpuscular Volume 88.1 fL (80.0-100.0); Monocytes # (auto) 0.4 10 ^3/uL (0-1.3); Monocytes % (auto) 9.7 % (0.0-12.0); Neutrophils # (auto) 3.3 10 ^3/uL (1.6-8.6); Neutrophils % (auto) 73.9 % (37.0-80.0); Platelet Count (auto) 253 10^3/uL (140-450); Red Blood Cells 2.94 10^6/uL (4.5-5.90); Red Cell Distribution Width 19.5 % (11.8-14.3); White Blood Cell 4.5 10^3/uL (4.4-10.8)
[2020-02-28 07:07] LABS: INR 1.13 (0.9-1.15); Partial Thromboplastin Time 30.2 sec (23.0-31.2)
[2020-02-28 07:12] LABS: Albumin 1.7 g/dL (3.4-5.0); Calcium 7.8 mg/dL (8.5-10.1); Potassium 4.2 mmol/L (3.5-5.1)
[2020-02-28 07:15] LABS: BUN/Creatinine Ratio 12.5; Total Protein 5.4 g/dL (6.4-8.2)
--- NOTE | 2020-02-28 08:00 | NUR ---
OPENING SHIFT NOTE ASSUMED CARE OF PATIENT AWAKE AND ALERT. NO S/S OF DISTRESS NOTED OR COMPLAINTS OF PAIN AT THIS TIME. PATIENT UPDATED ON POC FOR THE DAY AND ALL QUESTIONS ANSWERED. BED IS IN LOWEST, LOCKED POSITION WITH SIDE RAILS UP X2, CALL LIGHT WITHIN REACH, AND GUARDS AT BEDSIDE FOR SAFETY. WILL CONTINUE TO MONITOR Q1H AND PRN.
[2020-02-28 09:00] VITALS: BP 113/66
[2020-02-28] MEDS: PANTOPRAZOLE 40 MG/10 ML VIAL INJ IV SCH (09:43)
[2020-02-28] MEDS: oxyCODONE HCL 5MG TAB PO SCH ×2 (09:44→21:20)
[2020-02-28] MEDS: FUROSEMIDE 20 MG TAB PO SCH (09:44)
[2020-02-28] MEDS: CHOLECALCIFEROL (VITD3) 1,000UNIT=25mCg TAB PO SCH (09:44)
[2020-02-28] MEDS: POTASSIUM CHL 10 Meq TABLET PO SCH (09:44)
[2020-02-28] MEDS: FAMOTIDINE 20 MG TAB PO SCH (09:44)
[2020-02-28] MEDS: LISINOPRIL 10 MG TAB PO SCH (09:44)
[2020-02-28] MEDS: amLODIPine BESYLATE 5 MG TAB PO SCH (09:44)
--- NOTE | 2020-02-28 11:12 | NUR ---
Nutrition Followup Note Wt 72.0 kg Pt was sleeping with guards and RN at bedside at time of rounds. Pt is with a Regular diet with adequate PO of 75% PO x4 meals per RN doc. Pt is also with Ensure Clear QID. Est Energy needs IBW 70 [id number] kcals (25-30 kcal/kgIBW), Est Protein needs: 70-84 gms/day (1.0-1.2 gm/kgIBW). Will continue to monitor and reassess prn. Labs: CA 7.8 L, ALB 1.7 L BM: Pt with 3 BM today per RN note Skin: BS 16 mod risk, full details in reproductive healthcare assistant note. PES: 1) Altered nutrition related lab values r.t current chronic medical condition aeb hyperbil mod hypoalb Partially resolved, pt no longer NPO 2) Increased nutrient needs r/t chronic medical condition aeb pt`s underwt and with cancer NPO Comments: will continue to monitor PO intake, skin status. F/u low 5-7 days Rec: 1) consider prostat 1 packet bid. 2) consider ensure Enlive 1 carton bid instead of ensure clear. 3) continue current plan of care
[2020-02-28 13:00] VITALS: BP 113/73
[2020-02-28 17:00] VITALS: BP 120/74
--- NOTE | 2020-02-28 19:30 | NUR ---
IV SITE IS RED AND INFLAMED. REMOVED AND APPLIED A STERILE DRESSING. NOTED.
--- NOTE | 2020-02-28 20:10 | NUR ---
PATIENT COMPLAINED OF SOB. ASSESSMENT DONE AND O2 SAT IS 93-94% ROOM AIR. PATIENT APPEARED COMFORTABLE. REPOSITIONED TO COMFORT. ADMINISTERED O2 PER PATIENT'S REQUEST. O2 @ 1 LPM/NC GIVEN. WILL FOLLOW UP.
[2020-02-28 22:00] VITALS: BP 125/77
[2020-02-29] MEDS: chlorproMAZINE INECTION 25 MG in SODIUM CHL 0.9% 50 ML IV SCH ×7 (01:58→21:22)
[2020-02-29] MEDS: LACTULOSE 20Gm/30ML SOLN PO SCH ×3 (05:09→21:22)
[2020-02-29] MEDS: ENSURE CLEAR Apple 8oz Carton PO SCH ×4 (05:10→22:00)
--- NOTE | 2020-02-29 05:32 | NUR ---
PATIENT REFUSED THORAZINE. CONSEQUENCES EXPLAINED, BUT STILL REFUSED.
[2020-02-29 06:00] VITALS: BP 136/78
--- NOTE | 2020-02-29 07:50 | NUR ---
Opening Shift Note Assumed care of patient, awake and alert. No S/S of distress/SOB or pain. Instructed on POC and to call for assist PRN, will continue to monitor for changes Q1hr and PRN. Bed locked in lowest position with two side rails up and call light in reach.
--- NOTE | 2020-02-29 07:55 | NUR ---
PATIENT HAS SLIGHT TEMP OF 99.3. PATIENT REFUSING TO TAKE COVERS OFF STATES HE LIKES TO BE WARM AND DOES THIS ON THE UNIT, EVEN IF HE HAS CHILLS. I EDUCATED PATIENT ON THE NEED TO TAKE BLANKETS OFF TO DECREASE MILD TEMP, AND IF TEMP GOES HIGHER WE MAY NEED TO PLACE ICE BAGS UNDER ARMS, AND PER PATIENT THIS IS DISTASTEFUL. PATIENT VERBALIZED UNDERSTANDING AND CONTINUES WITH BLANKET.
[2020-02-29 08:00] VITALS: BP 116/62
--- NOTE | 2020-02-29 08:06 | NUR ---
PATIENT REFUSING THORAZINE STATES IT MAKES HIM SLEEPY, AND MUSCLES TIGHT.
[2020-02-29 09:00] VITALS: BP 116/62
[2020-02-29] MEDS: PANTOPRAZOLE 40 MG/10 ML VIAL INJ IV SCH (09:14)
[2020-02-29] MEDS: FAMOTIDINE 20 MG TAB PO SCH (09:15)
[2020-02-29] MEDS: oxyCODONE HCL 5MG TAB PO SCH ×2 (09:15→21:22)
[2020-02-29] MEDS: CHOLECALCIFEROL (VITD3) 1,000UNIT=25mCg TAB PO SCH (09:16)
[2020-02-29] MEDS: FUROSEMIDE 20 MG TAB PO SCH (09:16)
[2020-02-29] MEDS: LISINOPRIL 10 MG TAB PO SCH (09:16)
[2020-02-29] MEDS: POTASSIUM CHL 10 Meq TABLET PO SCH (09:17)
[2020-02-29] MEDS: amLODIPine BESYLATE 5 MG TAB PO SCH (09:17)
[2020-02-29 13:00] VITALS: BP 115/71
--- NOTE | 2020-02-29 13:00 | NUR ---
PATIENT REFUSING THORAZINE AND LACTULOSE. BLOOD PRESSURE MEDICATIONS ALSO HELD DUE TO BP 114/62 MEDICATIONS INCLUDE NORVASC 5 MG AND ZESTRIL [address] BORDEN NOTIFIED, PER DR BORDEN IT IS OK FOR ME TO HOLD BP MEDS AND HE WILL TALK TO PATIENT REGARDING OTHER MEDICATIONS.
[2020-02-29 16:54] VITALS: BP 131/83
--- NOTE | 2020-02-29 20:29 | NUR ---
DR. BORDEN PAGED PATIENT REPORTING 9/10 ABDOMINAL PAIN AT [facility]. PATIENT STATES HE CAN NOT WAIT UNTIL 2200 DOSE OF SCHEDULED PAIN MEDICATION. REQUESTING BREAKTHROUGH PAIN MEDICATION.
[2020-02-29 22:00] VITALS: BP 106/68
[2020-03-01] MEDS: chlorproMAZINE INECTION 25 MG in SODIUM CHL 0.9% 50 ML IV SCH ×4 (01:38→13:35)
[2020-03-01 05:04] VITALS: BP 115/71
[2020-03-01] MEDS: LACTULOSE 20Gm/30ML SOLN PO SCH ×3 (06:00→22:00)
[2020-03-01] MEDS: ENSURE CLEAR Apple 8oz Carton PO SCH ×4 (06:00→22:00)
--- NOTE | 2020-03-01 07:30 | NUR ---
RECEIVED REPORT FROM NIGHT NURSE. PATIENT RESTING IN BED, NO DISTRESS NOTED. 2 GUARDS AT BEDSIDE. HANDCUFF TO RIGHT WRIST, FOAM DRESSING TO WRIST FOR COMFORT. SHACKLES TO BILATERAL ANKLES, FOAM DRESSINGS FOR COMFORT. WILL CONTINUE TO MONITOR.
[2020-03-01 09:00] VITALS: BP 109/63
[2020-03-01] MEDS: PANTOPRAZOLE 40 MG/10 ML VIAL INJ IV SCH (09:46)
[2020-03-01] MEDS: oxyCODONE HCL 5MG TAB PO PRN ×3 (09:46→22:27)
[2020-03-01] MEDS: CHOLECALCIFEROL (VITD3) 1,000UNIT=25mCg TAB PO SCH (09:47)
[2020-03-01] MEDS: POTASSIUM CHL 10 Meq TABLET PO SCH (09:47)
[2020-03-01] MEDS: FAMOTIDINE 20 MG TAB PO SCH (09:47)
[2020-03-01] MEDS: FUROSEMIDE 20 MG TAB PO SCH (09:49)
[2020-03-01] MEDS: LISINOPRIL 10 MG TAB PO SCH (09:53)
[2020-03-01] MEDS: amLODIPine BESYLATE 5 MG TAB PO SCH (09:53)
--- NOTE | 2020-03-01 10:00 | NUR ---
PATIENT REFUSED THORAZINE. BLOOD PRESSURE MEDS HELD FOR DECREASED BLOOD PRESSURE 109/63 DR BORDEN AWARE.
[2020-03-01 13:00] VITALS: BP 100/59
--- NOTE | 2020-03-01 13:40 | NUR ---
PATIENT REFUSED THORAZINE AND LACTULOSE. STATED THAT THEY UPSET HIS STOMACH AND THE LACTULOSE MAKES HIM, "SHIT A LOT". EDUCATION PROVIDED. DR. BODREN AWARE THAT PATIENT CONTINUES TO REFUSE ORDERED MEDICATIONS.
[2020-03-01 16:58] VITALS: BP 117/67
[2020-03-01 22:00] VITALS: BP 114/74
[2020-03-02 05:00] VITALS: BP 126/82
[2020-03-02] MEDS: oxyCODONE HCL 5MG TAB PO PRN ×3 (05:03→20:37)
[2020-03-02] MEDS: LACTULOSE 20Gm/30ML SOLN PO SCH ×3 (06:00→21:29)
[2020-03-02] MEDS: ENSURE CLEAR Apple 8oz Carton PO SCH ×4 (06:00→21:29)
--- NOTE | 2020-03-02 07:25 | NUR ---
Opening Note Assumed pt care from NAWAF RN. Pt is a/ox4 with no s/s of distress or SOB. Pt is currently laying in bed with no complaints at this time. Discussed POC with pt. Safety measures maintained with call light within reach, bed in lowest position and side rails up. Will continue to monitor for changes.
[2020-03-02] MEDS: LISINOPRIL 10 MG TAB PO SCH (08:57)
[2020-03-02] MEDS: POTASSIUM CHL 10 Meq TABLET PO SCH (08:59)
[2020-03-02] MEDS: PANTOPRAZOLE 40 MG/10 ML VIAL INJ IV SCH (08:59)
[2020-03-02] MEDS: FAMOTIDINE 20 MG TAB PO SCH (08:59)
[2020-03-02] MEDS: CHOLECALCIFEROL (VITD3) 1,000UNIT=25mCg TAB PO SCH (08:59)
[2020-03-02] MEDS: FUROSEMIDE 20 MG TAB PO SCH (09:00)
[2020-03-02] MEDS: amLODIPine BESYLATE 5 MG TAB PO SCH (09:00)
[2020-03-02 09:51] VITALS: BP 117/73
[2020-03-02 13:00] VITALS: BP 110/73
--- NOTE | 2020-03-02 13:32 | NUR ---
Pt Refused Lactulose Pt states "I don't need that". Provided pt with education regarding purpose of, pt still refused.
[2020-03-02 17:00] VITALS: BP 107/69
[2020-03-02 22:00] VITALS: BP 113/68
[2020-03-03 05:00] VITALS: BP 115/74
[2020-03-03] MEDS: LACTULOSE 20Gm/30ML SOLN PO SCH ×3 (05:45→20:51)
[2020-03-03] MEDS: oxyCODONE HCL 5MG TAB PO PRN ×3 (05:48→20:51)
--- NOTE | 2020-03-03 07:30 | NUR ---
OPENING SHIFT NOTE ASSUMED CARE OF PATIENT AWAKE AND ALERT. NO S/S OF DISTRESS NOTED OR COMPLAINTS OF PAIN AT THIS TIME. PATIENT UPDATED ON POC FOR THE DAY AND ALL QUESTIONS ANSWERED. BED IS IN LOWEST, LOCKED POSITION WITH SIDE RAILS UP X2, CALL LIGHT WITHIN REACH, AND GUARDS AT BEDSIDE FOR SAFETY. WILL CONTINUE CARE.
[2020-03-03 09:00] VITALS: BP 110/67
[2020-03-03] MEDS: PANTOPRAZOLE 40 MG/10 ML VIAL INJ IV SCH (09:57)
[2020-03-03] MEDS: FAMOTIDINE 20 MG TAB PO SCH (09:57)
[2020-03-03] MEDS: POTASSIUM CHL 10 Meq TABLET PO SCH (09:57)
[2020-03-03] MEDS: LISINOPRIL 10 MG TAB PO SCH (09:58)
[2020-03-03] MEDS: FUROSEMIDE 20 MG TAB PO SCH (09:58)
[2020-03-03] MEDS: amLODIPine BESYLATE 5 MG TAB PO SCH (09:58)
[2020-03-03] MEDS: CHOLECALCIFEROL (VITD3) 1,000UNIT=25mCg TAB PO SCH (09:58)
[2020-03-03] MEDS: ENSURE CLEAR Apple 8oz Carton PO SCH ×3 (12:00→20:51)
[2020-03-03 13:00] VITALS: BP 113/68
--- NOTE | 2020-03-03 14:00 | NUR ---
Patient refusing scheduled Lactulose at this time.
--- NOTE | 2020-03-03 14:35 | NUR ---
PAIN Patient complains of left sided abdominal pain at this time. Patient rates pain 7/10. Will medicate with Oxycodone as per MD orders and continue to monitor pain.
[2020-03-03 17:26] VITALS: BP 99/60
[2020-03-03 22:39] VITALS: BP 129/73
[2020-03-04] MEDS: oxyCODONE HCL 5MG TAB PO PRN ×4 (04:08→22:36)
[2020-03-04] MEDS: ENSURE CLEAR Apple 8oz Carton PO SCH ×4 (05:04→20:55)
[2020-03-04] MEDS: LACTULOSE 20Gm/30ML SOLN PO SCH ×3 (05:04→20:55)
[2020-03-04 05:29] VITALS: BP 105/61
[2020-03-04 08:43] VITALS: BP 107/63
[2020-03-04] MEDS: PANTOPRAZOLE 40 MG/10 ML VIAL INJ IV SCH (10:17)
[2020-03-04] MEDS: POTASSIUM CHL 10 Meq TABLET PO SCH (10:17)
[2020-03-04] MEDS: FUROSEMIDE 20 MG TAB PO SCH (10:18)
[2020-03-04] MEDS: amLODIPine BESYLATE 5 MG TAB PO SCH (10:18)
[2020-03-04] MEDS: CHOLECALCIFEROL (VITD3) 1,000UNIT=25mCg TAB PO SCH (10:19)
[2020-03-04] MEDS: FAMOTIDINE 20 MG TAB PO SCH (10:19)
[2020-03-04] MEDS: LISINOPRIL 10 MG TAB PO SCH (10:19)
--- NOTE | 2020-03-04 11:06 | NUR ---
PATIENT SAYS HES VEGETARIAN AND DOESN'T LIKE THE FOOD HERE. EDITED DIET TO REFECT VEGETARIAN.
--- NOTE | 2020-03-04 12:06 | NUR ---
Nutrition Followup Note Wt 72.0 kg Pt was sleeping with guards and RN at bedside at time of rounds. Pt is with a Regular diet with adequate PO of 75% PO x4 meals per RN doc. Pt is also with Ensure Clear QID. Est Energy needs IBW 70 [id number] kcals (25-30 kcal/kgIBW), Est Protein needs: 70-84 gms/day (1.0-1.2 gm/kgIBW). Will continue to monitor and reassess prn. Labs: no new labs today 02/27: CA 7.8 L, ALB 1.7 L BM: Pt with 1 BM today per RN note Skin: BS 20 low risk, full details in career development facilitator note. PES: 1) Altered nutrition related lab values r.t current chronic medical condition aeb hyperbil mod hypoalb Partially resolved, pt no longer NPO 2) Increased nutrient needs r/t chronic medical condition aeb pt`s underwt and with cancer NPO Comments: will continue to monitor PO intake, skin status. F/u low 5-7 days Rec: 1) consider prostat 1 packet bid. 2) consider ensure Enlive 1 carton bid instead of ensure clear. 3) continue current plan of care
[2020-03-04 13:00] VITALS: BP 111/63
--- NOTE | 2020-03-04 14:00 | NUR ---
Patient refused lactulose states he doesn't take it anymore. aware.
[2020-03-04 16:26] VITALS: BP 103/63
[2020-03-04 22:48] VITALS: BP 100/58
[2020-03-05] MEDS: oxyCODONE HCL 5MG TAB PO PRN ×3 (04:38→20:39)
[2020-03-05 05:11] VITALS: BP 106/64
[2020-03-05] MEDS: LACTULOSE 20Gm/30ML SOLN PO SCH ×3 (05:51→22:30)
[2020-03-05] MEDS: ENSURE CLEAR Apple 8oz Carton PO SCH ×4 (05:51→22:00)
--- NOTE | 2020-03-05 07:30 | NUR ---
Opening Shift Note Assuming care of patient at this time. Patient is awake and alert. Patient denies pain. Patient shows no signs or symptoms of distress or shortness of breath. Bed is locked and lowered with side rails up x2. Instructed patient on the plan of care for today and to call for assistance as needed. Call light within reach. Will continue to round hourly and as needed.
[2020-03-05 08:31] VITALS: BP 110/67
[2020-03-05] MEDS: amLODIPine BESYLATE 5 MG TAB PO SCH (10:57)
[2020-03-05] MEDS: FAMOTIDINE 20 MG TAB PO SCH (10:58)
[2020-03-05] MEDS: CHOLECALCIFEROL (VITD3) 1,000UNIT=25mCg TAB PO SCH (10:58)
[2020-03-05] MEDS: LISINOPRIL 10 MG TAB PO SCH (10:59)
[2020-03-05] MEDS: POTASSIUM CHL 10 Meq TABLET PO SCH (10:59)
[2020-03-05] MEDS: PANTOPRAZOLE 40 MG/10 ML VIAL INJ IV SCH (11:00)
[2020-03-05] MEDS: FUROSEMIDE 20 MG TAB PO SCH (11:03)
[2020-03-05 12:06] VITALS: BP 91/59
--- NOTE | 2020-03-05 16:06 | NUR ---
Refusing Bladder Scan Patient states that he has not urinated all day. Took bladder scanner into patient's room. Patient is refusing bladder scan at this time. Patient states that if he needed to urinate that he could but he just chooses not to. Educated patient that he may be retaining urine and not feel the urge. Patient states, "that's not happening." Again, offered bladder scan, patient states, "I'd rather not." Will notify MD.
--- NOTE | 2020-03-05 16:15 | NUR ---
Page to Dr. Platt Page to Dr. Platt at this time. Awaiting callback.
[2020-03-05 16:49] VITALS: BP 105/69
--- NOTE | 2020-03-05 17:30 | NUR ---
Bathroom Patient ambulated to bathroom and used toilet. Patient states he urinated.
--- NOTE | 2020-03-05 18:57 | NUR ---
Closing Shift Note Patient resting in bed. No distress noted. Will give report and endorse care to the shift supervisor RN.
--- NOTE | 2020-03-05 19:14 | NUR ---
Closing Shift Note Patient resting in bed. No distress noted. Will give report and endorse care to the overnight babysitter RN.
--- NOTE | 2020-03-05 20:15 | NUR ---
open note assumed care of pt, upon entering room pt awake and alert on room air with no respiratory distress noted or expressed. pt guards at bedside. pt oriented to this nurse and updated on plan of care. pt bed locked, low and 2x rails up. call light in reach, pt encouraged to call as needed. pt has urinal at bedside. this nurse to round q1hr and prn.
[2020-03-05 22:00] VITALS: BP 125/67
--- NOTE | 2020-03-06 01:22 | NUR ---
pt tearful. states hopelessness given diagnosis and prognosis given. this nurse discussed with pt at length his concerns and wishes. pt requests grief counseling. this nurse to follow up with information regarding the availability of this in this inpatient setting. pt also states he wants to "find a hospice thats willing to take me". this nurse will also endorse this to oncoming nurse for follow up. pt states "if i go back to the medical facility," referring to medical institution associated with his incarceration, "i wouldnt be getting any of the meds im getting here, pain med guillermo". whereas dr goddard's note indicated that this belief of this patient is inaccurate
[2020-03-06 05:00] VITALS: BP 111/67
[2020-03-06] MEDS: oxyCODONE HCL 5MG TAB PO PRN ×3 (05:31→23:27)
[2020-03-06] MEDS: LACTULOSE 20Gm/30ML SOLN PO SCH ×3 (05:43→22:00)
[2020-03-06] MEDS: ENSURE CLEAR Apple 8oz Carton PO SCH ×4 (06:00→23:27)
[2020-03-06 07:21] LABS: Basophils # (auto) 0 10 ^3/uL (0-0.2); Basophils % (auto) 0.8 % (0.0-2.0); Eosinophils # (auto) 0 10 ^3/uL (0-0.8); Eosinophils % (auto) 0.2 % (0.0-7.0); Hematocrit 26.6 % (41.0-53.0); Hemoglobin 8.8 g/dL (13.5-17.5); Lymphocytes # (auto) 0.8 10 ^3/uL (0.4-5.4); Mean Corpuscular Hemoglobin 29.1 pg (28.0-32.0); Mean Corpuscular Hgb Conc. 32.9 g/dL (32.0-36.0); Mean Corpuscular Volume 88.4 fL (80.0-100.0); Monocytes # (auto) 0.8 10 ^3/uL (0-1.3); Monocytes % (auto) 13.6 % (0.0-12.0); Neutrophils # (auto) 4.1 10 ^3/uL (1.6-8.6); Neutrophils % (auto) 71.4 % (37.0-80.0); Platelet Count (auto) 246 10^3/uL (140-450); Red Blood Cells 3.01 10^6/uL (4.5-5.90); Red Cell Distribution Width 18.6 % (11.8-14.3); White Blood Cell 5.7 10^3/uL (4.4-10.8)
[2020-03-06 07:30] LABS: Albumin 1.5 g/dL (3.4-5.0); Potassium 4.1 mmol/L (3.5-5.1)
[2020-03-06 07:34] LABS: BUN/Creatinine Ratio 21.9; Bilirubin, Total 1.1 mg/dL (0.2-1.0); Total Protein 5.5 g/dL (6.4-8.2)
[2020-03-06 09:00] VITALS: BP 109/65
[2020-03-06] MEDS: amLODIPine BESYLATE 5 MG TAB PO SCH (10:00)
[2020-03-06] MEDS: LISINOPRIL 10 MG TAB PO SCH (10:00)
[2020-03-06] MEDS: PANTOPRAZOLE 40 MG/10 ML VIAL INJ IV SCH (10:00)
[2020-03-06] MEDS: FAMOTIDINE 20 MG TAB PO SCH (10:14)
[2020-03-06] MEDS: POTASSIUM CHL 10 Meq TABLET PO SCH (10:14)
[2020-03-06] MEDS: FUROSEMIDE 20 MG TAB PO SCH (10:14)
[2020-03-06] MEDS: CHOLECALCIFEROL (VITD3) 1,000UNIT=25mCg TAB PO SCH (10:14)
[2020-03-06 13:00] VITALS: BP 102/63
[2020-03-06 17:00] VITALS: BP 103/65
--- NOTE | 2020-03-06 19:38 | NUR ---
Closing Shift Note Patient resting in bed. No distress noted. Will give report and endorse care to the supervisor rough end RN. Guards at bedside.
--- NOTE | 2020-03-06 20:00 | NUR ---
Opening Shift Note Assumed care of patient. Awake, alert and oriented x4. No S/S of distress/SOB or pain. Pt is on 2L NC with even and unlabored respirations. Instructed on POC and to call for assist PRN. Will continue to monitor for changes Q1hr and PRN.
[2020-03-06 22:00] VITALS: BP 110/71
[2020-03-07 05:00] VITALS: BP 103/70
[2020-03-07] MEDS: LACTULOSE 20Gm/30ML SOLN PO SCH ×3 (05:40→21:24)
[2020-03-07] MEDS: ENSURE CLEAR Apple 8oz Carton PO SCH ×4 (05:41→21:24)
[2020-03-07] MEDS: oxyCODONE HCL 5MG TAB PO PRN ×3 (05:41→21:42)
--- NOTE | 2020-03-07 07:30 | NUR ---
Opening Shift Note Assuming care of patient at this time. Patient is awake and alert. Patient denies pain. Patient shows no signs or symptoms of distress or shortness of breath. Bed is locked and lowered with side rails up x2. Instructed patient on the plan of care for today and to call for assistance as needed. Call light within reach. guards at bedside per fpc protocol, Will continue to round hourly and as needed.
[2020-03-07 08:00] VITALS: BP 115/72
[2020-03-07] MEDS: PANTOPRAZOLE 40 MG/10 ML VIAL INJ IV SCH (10:53)
[2020-03-07] MEDS: FAMOTIDINE 20 MG TAB PO SCH (10:53)
[2020-03-07] MEDS: CHOLECALCIFEROL (VITD3) 1,000UNIT=25mCg TAB PO SCH (10:53)
--- NOTE | 2020-03-07 10:53 | NUR ---
IV TO RIGHT HAND/WRIST INFILTRATED,DISCONTINUED, ATTEMPTED TO START X 2, PAUL MONAHAN NURSE STARTED g#22 TO RIGHT FOREARM Addendum: 03/07/20 at 1804 by Paloma Reed RN RN @ [id number] IV TO LEFT HAND NOT RIGHT
[2020-03-07] MEDS: POTASSIUM CHL 10 Meq TABLET PO SCH (10:54)
[2020-03-07] MEDS: amLODIPine BESYLATE 5 MG TAB PO SCH (10:54)
[2020-03-07] MEDS: FUROSEMIDE 20 MG TAB PO SCH (10:54)
[2020-03-07] MEDS: LISINOPRIL 10 MG TAB PO SCH (10:55)
[2020-03-07 12:00] VITALS: BP 113/78
--- NOTE | 2020-03-07 15:01 | NUR ---
Assessment This is a 64-year-old white male, who alert and oriented. Patient is incarcerated inmate at [facility] in [place]. Prior to admission to [facility] patient uses a wheel at the [facility] facility and can do all ADLs independently. Since admission at [facility], patient ambulates with physical therapy via walker and oxygen therapy. Patient has history of hepatocellular carcinoma and hepatitis C. Discharge planning: Patient is waiting for a [facility] bed to open to determine discharge transfer. Addendum: 03/07/20 at 1502 by MISHA ESTEVEZ Amended: Links added.
--- NOTE | 2020-03-07 15:04 | NUR ---
Consultation Patient requested for speak with a Metal Fabricator Welder or other counselors regarding anxiety, fear and hopelessness. Patient declined consultation from plier worker. SW ask patient again, if he wants to speak with a Metal Fabricator Welder or counselor for his diagnoses and patient declined services. Addendum: 03/07/20 at 1507 by MISHA PATE SS Amended: Links added.
[2020-03-07 17:00] VITALS: BP 102/70
[2020-03-07 20:00] VITALS: BP 115/72
[2020-03-07 22:00] VITALS: BP 108/71
--- NOTE | 2020-03-08 02:51 | NUR ---
PT RESTING COMFORTABLY WITH NO COMPLAINTS OF PAIN. CALL LIGHT IN REACH WITH GUARDS PRESENT.
[2020-03-08] MEDS: oxyCODONE HCL 5MG TAB PO PRN ×3 (04:50→22:39)
[2020-03-08 05:00] VITALS: BP 110/75
[2020-03-08] MEDS: ENSURE CLEAR Apple 8oz Carton PO SCH ×4 (06:00→22:39)
[2020-03-08] MEDS: LACTULOSE 20Gm/30ML SOLN PO SCH ×3 (06:00→22:38)
--- NOTE | 2020-03-08 07:30 | NUR ---
Opening Shift Note Assuming care of patient at this time. Patient is awake and alert. Patient denies pain. Patient shows no signs or symptoms of distress or shortness of breath. Bed is locked and lowered with side rails up x2. Instructed patient on the plan of care for today and to call for assistance as needed. Call light within reach. guards at bedside per retirement protocol, Will continue to round hourly and as needed.
[2020-03-08 09:00] VITALS: BP 106/62
--- NOTE | 2020-03-08 09:15 | NUR ---
OOB AMBULATE WITH P.T. IN HALLWAY,BACK TO ROOM TOLERATED ACTIVITY
[2020-03-08] MEDS: PANTOPRAZOLE 40 MG/10 ML VIAL INJ IV SCH (11:20)
[2020-03-08] MEDS: amLODIPine BESYLATE 5 MG TAB PO SCH (11:21)
[2020-03-08] MEDS: POTASSIUM CHL 10 Meq TABLET PO SCH (11:21)
[2020-03-08] MEDS: FUROSEMIDE 20 MG TAB PO SCH (11:21)
[2020-03-08] MEDS: CHOLECALCIFEROL (VITD3) 1,000UNIT=25mCg TAB PO SCH (11:22)
[2020-03-08] MEDS: LISINOPRIL 10 MG TAB PO SCH (11:22)
[2020-03-08] MEDS: FAMOTIDINE 20 MG TAB PO SCH (11:23)
[2020-03-08 13:00] VITALS: BP 102/65
[2020-03-08 14:17] VITALS: BP 118/75
--- NOTE | 2020-03-08 14:44 | NUR ---
C/O RIGHT SIDE ABDOMINAL PAIN,SCALE OF 6/10,OXYCODONE 10 MG PO GIVEN
[2020-03-08 17:00] VITALS: BP 116/71
--- NOTE | 2020-03-08 19:30 | NUR ---
OPENING SHIFT NOTE PT IS RESTING IN BED. NO S/S OF ANY DISTRESS NOTED. GUARDS AT BEDSIDE. PT WITH RIGHT WRIST CUFFED TO SIDE RAIL. SKIN IS CDI. BED IS LOW, WHEELS ARE LOCKED, AND CALL LIGHT IS WITH IN REACH.
[2020-03-08 22:00] VITALS: BP 105/69
--- NOTE | 2020-03-08 22:40 | NUR ---
PT STATES THAT HE WILL TAKE SCHEDULED LACTULOSE IF HE CAN DILUTE WITH WATER. PT ALSO C/O THAT MEDICATION , " MAKES ME VOMIT."
[2020-03-09 05:00] VITALS: BP 106/69
[2020-03-09] MEDS: LACTULOSE 20Gm/30ML SOLN PO SCH ×3 (06:00→21:57)
[2020-03-09] MEDS: oxyCODONE HCL 5MG TAB PO PRN ×4 (06:00→20:07)
[2020-03-09] MEDS: ENSURE CLEAR Apple 8oz Carton PO SCH ×4 (06:15→22:00)
--- NOTE | 2020-03-09 06:48 | NUR ---
PT HAS REFUSED LACTULOSE THIS AM.
--- NOTE | 2020-03-09 08:00 | NUR ---
Opening Shift Note Assumed care of patient, awake and alert. No S/S of distress/SOB, 6/10 right upper abdominal pain. Instructed on POC and to call for assist PRN, will continue to monitor for changes Q1hr and PRN.
[2020-03-09 09:00] VITALS: BP 104/66
[2020-03-09] MEDS: LISINOPRIL 10 MG TAB PO SCH (09:58)
[2020-03-09] MEDS: PANTOPRAZOLE 40 MG/10 ML VIAL INJ IV SCH (09:58)
[2020-03-09] MEDS: amLODIPine BESYLATE 5 MG TAB PO SCH (09:59)
[2020-03-09] MEDS: POTASSIUM CHL 10 Meq TABLET PO SCH (09:59)
[2020-03-09] MEDS: CHOLECALCIFEROL (VITD3) 1,000UNIT=25mCg TAB PO SCH (09:59)
[2020-03-09] MEDS: FAMOTIDINE 20 MG TAB PO SCH (10:00)
[2020-03-09] MEDS: FUROSEMIDE 20 MG TAB PO SCH (10:00)
[2020-03-09 13:00] VITALS: BP 105/69
--- NOTE | 2020-03-09 13:07 | NUR ---
Nutrition Followup Note Wt 68.8 kg Pt was sleeping with guards and RN at bedside at time of rounds. Pt is with a Regular diet with adequate PO of 75% PO x4 meals per RN doc. Pt is also with Ensure Clear QID. Est Energy needs IBW 70 [id number] kcals (25-30 kcal/kgIBW), Est Protein needs: 70-84 gms/day (1.0-1.2 gm/kgIBW). Will continue to monitor and reassess prn. Labs: Gluc 73 L, Ca 8.0 L, Alb 1.5 L, Bili 1.1 H, AST 367 H, Alk Phos 280 H BM: Pt with 1 BM on 03/08 per RN note Skin: BS 20 low risk, full details in care connector note. PES: 1) Altered nutrition related lab values r.t current chronic medical condition aeb hyperbil mod hypoalb Partially resolved, pt no longer NPO 2) Increased nutrient needs r/t chronic medical condition aeb pt`s underweight and with cancer NPO Comments: will continue to monitor PO intake, skin status. F/u low 5-7 days Rec: 1) consider prostat 1 packet bid. 2) consider ensure Enlive 1 carton bid instead of ensure clear. 3) continue current plan of care
[2020-03-09 16:54] VITALS: BP 114/70
--- NOTE | 2020-03-09 19:35 | NUR ---
GUARDS AT BEDSIDE. PT WITH RIGHT WRIST HANDCUFFED TO THE SIDE RAIL AND SKIN IS CDI.
--- NOTE | 2020-03-09 19:35 | NUR ---
OPENING SHIFT NOTE PT IS RESTING IN BED AWAKE AND ALERT. NO S/S OF ANY DISTRESS NOTED. POC DISCUSSED WITH PT AND PT VERBALIZES UNDERSTANDING. BED IS LOW, WHEELS ARE LOCKED, AND CALL LIGHT IS WITH IN REACH.
[2020-03-09 22:00] VITALS: BP 113/71
[2020-03-10] MEDS: oxyCODONE HCL 5MG TAB PO PRN ×4 (02:14→22:20)
[2020-03-10 05:30] VITALS: BP 115/75
[2020-03-10] MEDS: ENSURE CLEAR Apple 8oz Carton PO SCH ×3 (06:48→22:00)
[2020-03-10 09:04] VITALS: BP 103/62
[2020-03-10] MEDS: POTASSIUM CHL 10 Meq TABLET PO SCH (09:40)
[2020-03-10] MEDS: PANTOPRAZOLE 40 MG/10 ML VIAL INJ IV SCH (09:40)
[2020-03-10] MEDS: FAMOTIDINE 20 MG TAB PO SCH (09:40)
[2020-03-10] MEDS: FUROSEMIDE 20 MG TAB PO SCH (09:41)
[2020-03-10] MEDS: amLODIPine BESYLATE 5 MG TAB PO SCH (09:41)
[2020-03-10] MEDS: LISINOPRIL 10 MG TAB PO SCH (09:41)
[2020-03-10] MEDS: CHOLECALCIFEROL (VITD3) 1,000UNIT=25mCg TAB PO SCH (09:41)
[2020-03-10 11:56] VITALS: BP 109/70
[2020-03-10 16:57] VITALS: BP 104/63
[2020-03-10 22:00] VITALS: BP 118/68
[2020-03-11 05:00] VITALS: BP 112/70
[2020-03-11] MEDS: ENSURE CLEAR Apple 8oz Carton PO SCH ×4 (05:27→22:00)
[2020-03-11] MEDS: oxyCODONE HCL 5MG TAB PO PRN ×3 (05:27→19:26)
[2020-03-11 08:34] VITALS: BP 107/67
[2020-03-11] MEDS: PANTOPRAZOLE 40 MG/10 ML VIAL INJ IV SCH (10:05)
[2020-03-11] MEDS: FAMOTIDINE 20 MG TAB PO SCH (10:05)
[2020-03-11] MEDS: FUROSEMIDE 20 MG TAB PO SCH (10:06)
[2020-03-11] MEDS: POTASSIUM CHL 10 Meq TABLET PO SCH (10:06)
[2020-03-11] MEDS: CHOLECALCIFEROL (VITD3) 1,000UNIT=25mCg TAB PO SCH (10:06)
[2020-03-11 13:26] VITALS: BP 110/69
[2020-03-11 16:52] VITALS: BP 110/70
--- NOTE | 2020-03-11 19:30 | NUR ---
Opening Shift Note Assumed care of patient, awake and alert. Guards at the bedside. No S/S of distress/SOB or pain. Bed locked in the lowest position, side rails up X2, call light within reach. Instructed on POC and to call for assist PRN, will continue to monitor for changes Q1hr and PRN.
[2020-03-11 22:00] VITALS: BP 111/69
[2020-03-12] MEDS: oxyCODONE HCL 5MG TAB PO PRN ×4 (01:20→23:41)
[2020-03-12 05:00] VITALS: BP 112/69
[2020-03-12] MEDS: ENSURE CLEAR Apple 8oz Carton PO SCH ×4 (06:00→22:00)
[2020-03-12 06:19] LABS: Basophils # (auto) 0 10 ^3/uL (0-0.2); Basophils % (auto) 0.8 % (0.0-2.0); Eosinophils # (auto) 0 10 ^3/uL (0-0.8); Eosinophils % (auto) 0.4 % (0.0-7.0); Hematocrit 32.5 % (41.0-53.0); Hemoglobin 10.4 g/dL (13.5-17.5); Lymphocytes # (auto) 1.2 10 ^3/uL (0.4-5.4); Lymphocytes % (auto) 20.1 % (10.0-50.0); Mean Corpuscular Hemoglobin 28.7 pg (28.0-32.0); Mean Corpuscular Hgb Conc. 32.1 g/dL (32.0-36.0); Mean Corpuscular Volume 89.2 fL (80.0-100.0); Monocytes # (auto) 0.7 10 ^3/uL (0-1.3); Monocytes % (auto) 11.7 % (0.0-12.0); Neutrophils # (auto) 4.1 10 ^3/uL (1.6-8.6); Nucleated Red Blood Cells % 0.1 %; Platelet Count (auto) 271 10^3/uL (140-450); Red Blood Cells 3.64 10^6/uL (4.5-5.90); Red Cell Distribution Width 18.9 % (11.8-14.3); White Blood Cell 6.1 10^3/uL (4.4-10.8)
[2020-03-12 06:35] LABS: Albumin 1.7 g/dL (3.4-5.0); Potassium 4.7 mmol/L (3.5-5.1)
[2020-03-12 06:40] LABS: BUN/Creatinine Ratio 12.2; Bilirubin, Total 1.3 mg/dL (0.2-1.0); Total Protein 6.1 g/dL (6.4-8.2)
[2020-03-12 08:36] VITALS: BP 105/68
[2020-03-12] MEDS: PANTOPRAZOLE 40 MG/10 ML VIAL INJ IV SCH (10:05)
[2020-03-12] MEDS: FUROSEMIDE 20 MG TAB PO SCH (10:06)
[2020-03-12] MEDS: CHOLECALCIFEROL (VITD3) 1,000UNIT=25mCg TAB PO SCH (10:06)
[2020-03-12] MEDS: POTASSIUM CHL 10 Meq TABLET PO SCH (10:06)
[2020-03-12] MEDS: FAMOTIDINE 20 MG TAB PO SCH (10:06)
[2020-03-12 13:00] VITALS: BP 106/67
--- NOTE | 2020-03-12 13:46 | NUR ---
PAGED MD BORDEN RE: PATIENT PAIN MEDICATION EXPIRING. AWAITING CALL BACK
--- NOTE | 2020-03-12 14:50 | NUR ---
ROUNDING MD BORDEN AT BEDSIDE. ALL QUESTIONS AND CONCERNS ADDRESSED AT THIS TIME.
--- NOTE | 2020-03-12 14:55 | NUR ---
BRANDON CONDE PER MD BORDEN WOULD LIKE TO KNOW IF PROCEDURE CAN BE PERFORMED AT AN EARLIER DATE. AWAITING CALL BACK Addendum: 03/12/20 at 1536 by LUISA DIAZ RN RN INCORRECT PATIENT
--- NOTE | 2020-03-12 15:22 | NUR ---
BRANDON SEXTON RETURNED PAGE PER VENEREAL DISEASE INVESTIGATOR THEY WILL CLEAR PATIENT FOR OUTPATIENT PROCEDURE. PRIMARY RN WILL UPDATE Addendum: 03/12/20 at 1611 by LUISA DIAZ RN RN INCORRECT PATIENT
--- NOTE | 2020-03-12 15:32 | NUR ---
AMAYA BORDEN RE: BRANDON SEXTON WITH UROLOGY. AWAITING CALL BACK Addendum: 03/12/20 at 1821 by LUISA DIAZ RN RN INCORRECT PATIENT
[2020-03-12 17:00] VITALS: BP 113/68
--- NOTE | 2020-03-12 19:05 | NUR ---
Opening Shift Note Assumed care of patient, awake and alert. Patient on 2L N/C with no S/S of distress/SOB or pain. Guards at the beside, Bed locked in the lowest position, side rails up x2, call light within reach. Instructed on POC and to call for assist PRN, will continue to monitor for changes Q1hr and PRN.
[2020-03-12 21:42] VITALS: BP 116/59
--- NOTE | 2020-03-12 22:20 | NUR ---
ROUNDS PATIENT ASLEEP IN THE LOW FOWLERS POSITION. NO SIGNS OF DISTRESS/ SOB AT THIS TIME.
--- NOTE | 2020-03-13 03:30 | NUR ---
ROUNDS PATIENT RESTING IN THE HIGH FOWLERS POSITION. NO SIGNS OF DISTRESS/ SOB AT THIS TIME. CONTINUE CARE.
[2020-03-13 05:00] VITALS: BP 124/68
[2020-03-13] MEDS: ENSURE CLEAR Apple 8oz Carton PO SCH ×4 (05:56→21:41)
--- NOTE | 2020-03-13 06:04 | NUR ---
ROUNDS PATIENT ASLEEP IN THE LOW FOWLERS POSITION. NO SIGNS OF DISTRESS/ SOB AT THIS TIME. WILL CONTINUE CARE.
[2020-03-13 09:00] VITALS: BP 113/69
[2020-03-13] MEDS: PANTOPRAZOLE 40 MG/10 ML VIAL INJ IV SCH (09:08)
[2020-03-13] MEDS: POTASSIUM CHL 10 Meq TABLET PO SCH (09:12)
[2020-03-13] MEDS: FAMOTIDINE 20 MG TAB PO SCH (09:12)
[2020-03-13] MEDS: CHOLECALCIFEROL (VITD3) 1,000UNIT=25mCg TAB PO SCH (09:12)
[2020-03-13] MEDS: FUROSEMIDE 20 MG TAB PO SCH (09:13)
[2020-03-13 13:50] VITALS: BP 108/69
[2020-03-13 16:38] VITALS: BP 116/71
[2020-03-13] MEDS: ONDANSETRON HCL 4 MG/2 ML VIAL IV PRN (20:32)
[2020-03-13] MEDS ORDERED: oxyCODONE HCL 5MG TAB ONE ×2 (21:28→21:35)
[2020-03-13] MEDS: oxyCODONE HCL 5MG TAB PO PRN (21:38)
--- NOTE | 2020-03-13 21:42 | NUR ---
PATIENT REFUSED ENSURE DRINK 250 ML PATIENT WOULD LIKE SOY ONLY.
[2020-03-13 22:00] VITALS: BP 120/72
[2020-03-14 04:53] VITALS: BP 119/70
[2020-03-14] MEDS: ENSURE CLEAR Apple 8oz Carton PO SCH ×4 (06:00→22:00)
[2020-03-14 09:07] VITALS: BP 113/71
[2020-03-14] MEDS: ONDANSETRON HCL 4 MG/2 ML VIAL IV PRN (10:44)
[2020-03-14] MEDS: FAMOTIDINE 20 MG TAB PO SCH (10:45)
[2020-03-14] MEDS: CHOLECALCIFEROL (VITD3) 1,000UNIT=25mCg TAB PO SCH (10:45)
[2020-03-14] MEDS: oxyCODONE HCL 5MG TAB PO PRN (10:45)
[2020-03-14] MEDS: POTASSIUM CHL 10 Meq TABLET PO SCH (10:45)
[2020-03-14] MEDS: FUROSEMIDE 20 MG TAB PO SCH (10:46)
[2020-03-14] MEDS: PANTOPRAZOLE 40 MG TAB PO SCH (10:46)
--- NOTE | 2020-03-14 11:29 | NUR ---
Nutrition Followup Note Wt 65.8 kg Pt was sleeping with guards and RN at bedside at time of rounds. Pt is with a Regular diet with inadequate intake of ave of 42% PO x6 meals per RN doc. Pt is also with Ensure Clear QID, which pt refused this a.m. Per RN note pt wants only soy drinks instead. Est Energy needs IBW 70 [id number] kcals (25-30 kcal/kgIBW), Est Protein needs: 70-84 gms/day (1.0-1.2 gm/kgIBW). Will continue to monitor and reassess prn. Labs: Gluc 62 L, Ca 8.0 L, Alb 1.7 L, Bili 1.3 H, AST 514 H, Alk Phos 302 H BM: Pt with 1 BM today per RN note Skin: BS 19 low risk, full details in care tech note. PES: 1) Altered nutrition related lab values r.t current chronic medical condition aeb hyperbil mod hypoalb Partially resolved, pt no longer NPO 2) Increased nutrient needs r/t chronic medical condition aeb pt`s underweight and with cancer NPO Comments: will continue to monitor PO intake, skin status. F/u low 5-7 days Rec: 1) consider prostat 1 packet bid. 2) consider ensure Enlive 1 carton bid instead of ensure clear. 3) continue current plan of care
[2020-03-14 13:19] VITALS: BP 120/72
[2020-03-14 16:25] VITALS: BP 109/71
--- NOTE | 2020-03-14 19:20 | NUR ---
Opening Shift Note Assumed care of patient, awake and alert. No S/S of distress/SOB or pain. Instructed on POC and to call for assist PRN, will continue to monitor for changes Q1hr and PRN. Guards at bedside. Bed locked and in lowest position with call light in reach.
[2020-03-14 22:01] VITALS: BP 123/72
[2020-03-15] MEDS: oxyCODONE HCL 5MG TAB PO PRN ×4 (00:03→19:47)
[2020-03-15 05:19] VITALS: BP 116/76
--- NOTE | 2020-03-15 07:45 | NUR ---
Opening Shift Note Assumed care of patient, awake, alert, and oriented. No S/S of distress/SOB or pain. Bed in lowest/locked position, bed rails up x2, call light within reach. Instructed on POC and to call for assist PRN. Will continue to monitor for changes Q1hr and PRN.
[2020-03-15 08:25] VITALS: BP 117/74
[2020-03-15] MEDS: FAMOTIDINE 20 MG TAB PO SCH (08:52)
[2020-03-15] MEDS: POTASSIUM CHL 10 Meq TABLET PO SCH (08:52)
[2020-03-15] MEDS: PANTOPRAZOLE 40 MG TAB PO SCH (08:52)
[2020-03-15] MEDS: CHOLECALCIFEROL (VITD3) 1,000UNIT=25mCg TAB PO SCH (08:53)
[2020-03-15] MEDS: FUROSEMIDE 20 MG TAB PO SCH (08:53)
[2020-03-15] MEDS: ENSURE CLEAR Apple 8oz Carton PO SCH ×3 (12:00→22:53)
[2020-03-15 13:11] VITALS: BP 107/67
[2020-03-15 16:37] VITALS: BP 111/69
--- NOTE | 2020-03-15 19:10 | NUR ---
Opening Shift Note Assumed care of patient, awake and alert. No S/S of distress/SOB. Instructed on POC and to call for assist PRN, will continue to monitor for changes Q1hr and PRN. Pt is an inmate with guards at the bedside. Bed locked and in the lowest position with call light in reach.
[2020-03-15 22:00] VITALS: BP 122/75
[2020-03-16 05:00] VITALS: BP 120/70
--- NOTE | 2020-03-16 08:00 | NUR ---
Opening Shift Note Assumed care of patient, awake, alert, and oriented. No S/S of distress/SOB or pain. Bed in lowest/locked position, bed rails up x2, call light within reach. Guards at bedside. Instructed on POC and to call for assist PRN. Will continue to monitor for changes Q1hr and PRN.
[2020-03-16 09:00] VITALS: BP 120/81
[2020-03-16] MEDS: FUROSEMIDE 20 MG TAB PO SCH (09:13)
[2020-03-16] MEDS: POTASSIUM CHL 10 Meq TABLET PO SCH (09:14)
[2020-03-16] MEDS: FAMOTIDINE 20 MG TAB PO SCH (09:14)
[2020-03-16] MEDS: PANTOPRAZOLE 40 MG TAB PO SCH (09:14)
[2020-03-16] MEDS: oxyCODONE HCL 5MG TAB PO PRN ×2 (09:15→19:59)
[2020-03-16] MEDS: CHOLECALCIFEROL (VITD3) 1,000UNIT=25mCg TAB PO SCH (09:15)
--- NOTE | 2020-03-16 11:30 | NUR ---
[facility] STUDENT ACCOUNTS MANAGER UPDATED
[2020-03-16] MEDS: ENSURE CLEAR Apple 8oz Carton PO SCH ×3 (12:00→22:00)
[2020-03-16 13:00] VITALS: BP 123/73
[2020-03-16 17:00] VITALS: BP 122/74
--- NOTE | 2020-03-16 19:30 | NUR ---
Opening note Patient resting in bed with even and unlabored respirations on room air, no distress noted. Instructed patient on POC, fall precautions and to call for assistance as needed. Patient verbalized understanding. Fall precautions in place with call light within reach.
[2020-03-16 22:00] VITALS: BP 129/80
--- NOTE | 2020-03-16 22:48 | NUR ---
Patient resting in bed with one eye closed and one eye open; respirations even and unlabored on room air, no distress noted. Patient sleeps with one eye open per the guards at bedside.
--- NOTE | 2020-03-17 02:57 | NUR ---
Care endorsed to EJ Morales. Patient resting in bed with even and unlabored respirations, no distress noted. Fall precautions in place with call light within reach.
--- NOTE | 2020-03-17 03:10 | NUR ---
Opening Shift Note Assumed care of patient, pt asleep verbally awake and alert. No S/S of distress/SOB or pain. Instructed on POC and to call for assist PRN, will continue to monitor for changes Q1hr and PRN.
[2020-03-17 05:00] VITALS: BP 120/74
[2020-03-17] MEDS: ENSURE CLEAR Apple 8oz Carton PO SCH ×4 (06:00→21:50)
[2020-03-17] MEDS: oxyCODONE HCL 5MG TAB PO PRN ×2 (06:31→12:24)
[2020-03-17 09:04] VITALS: BP 114/74
[2020-03-17] MEDS: POTASSIUM CHL 10 Meq TABLET PO SCH (09:19)
[2020-03-17] MEDS: CHOLECALCIFEROL (VITD3) 1,000UNIT=25mCg TAB PO SCH (09:20)
[2020-03-17] MEDS: FUROSEMIDE 20 MG TAB PO SCH (09:20)
[2020-03-17] MEDS: PANTOPRAZOLE 40 MG TAB PO SCH (09:20)
[2020-03-17] MEDS: FAMOTIDINE 20 MG TAB PO SCH (09:20)
[2020-03-17 12:42] VITALS: BP 124/69
[2020-03-17 17:03] VITALS: BP 122/88
[2020-03-18 00:32] VITALS: BP 120/74
[2020-03-18 05:56] VITALS: BP 128/79
[2020-03-18] MEDS: ENSURE CLEAR Apple 8oz Carton PO SCH ×4 (06:00→22:00)
--- NOTE | 2020-03-18 07:17 | NUR ---
closing note endorsed care to EJ Dobbins. No sign of distress/pain at this time
[2020-03-18] MEDS: oxyCODONE HCL 5MG TAB PO PRN ×3 (08:18→18:38)
[2020-03-18 08:30] VITALS: BP 117/70
[2020-03-18] MEDS: CHOLECALCIFEROL (VITD3) 1,000UNIT=25mCg TAB PO SCH (09:51)
[2020-03-18] MEDS: POTASSIUM CHL 10 Meq TABLET PO SCH (09:51)
[2020-03-18] MEDS: FAMOTIDINE 20 MG TAB PO SCH (09:51)
[2020-03-18] MEDS: PANTOPRAZOLE 40 MG TAB PO SCH (09:51)
[2020-03-18] MEDS: FUROSEMIDE 20 MG TAB PO SCH (09:52)
[2020-03-18 13:42] VITALS: BP 120/78
[2020-03-18 16:28] VITALS: BP 126/73
--- NOTE | 2020-03-18 19:30 | NUR ---
Opening shift note Assumed care from day shift RNShilpi. Patient sleeping in semi-fowlers position, respirations even and non-labored without s/s of distress at this time. O2 at 3L NC. Safety precautions in place, bed in lowest locked position with 2 side rails up, call light within reach. Patient currently in cuffs with two guards bedside. Will continue to monitor Q1hr and PRN.
[2020-03-19] MEDS: oxyCODONE HCL 5MG TAB PO PRN ×3 (00:50→18:51)
--- NOTE | 2020-03-19 03:22 | NUR ---
Computers down Unable to access EMAR for documentation. Patient given PRN pain medication Oxycodon per EMAR at 0050 hrs for 6/10 pain. Patient tolerated well. Will continue to monitor.
[2020-03-19] MEDS: ENSURE CLEAR Apple 8oz Carton PO SCH ×4 (06:00→22:00)
[2020-03-19 06:23] VITALS: BP 113/66
--- NOTE | 2020-03-19 06:55 | NUR ---
Patient Resting Patient respirations even and non-labored with no s/s of distress at this time.
[2020-03-19 08:59] VITALS: BP 117/75
[2020-03-19] MEDS: POTASSIUM CHL 10 Meq TABLET PO SCH (09:43)
[2020-03-19] MEDS: FUROSEMIDE 20 MG TAB PO SCH (09:43)
[2020-03-19] MEDS: CHOLECALCIFEROL (VITD3) 1,000UNIT=25mCg TAB PO SCH (09:44)
[2020-03-19] MEDS: PANTOPRAZOLE 40 MG TAB PO SCH (09:45)
[2020-03-19] MEDS: FAMOTIDINE 20 MG TAB PO SCH (09:46)
[2020-03-19 11:55] VITALS: BP 113/76
--- NOTE | 2020-03-19 13:00 | NUR ---
Nutrition Followup Note Wt 62 kg Pt was receiving medications from Rn at time of rounds. Pt reports appetite is not great. Pt had diarrhea off and on. reports some nausea. Pt appetite appears to be poor aeb pt with 42% po intake 03/18, pt refusing oral supplement. Est Energy needs IBW 70 [id number] kcals (25-30 kcal/kgIBW), Est Protein needs: 70-84 gms/day (1.0-1.2 gm/kgIBW). Will continue to monitor and reassess prn. Labs: Na 134L, GLUC 62L, Alb 1.7L, Ca 8.0L, T bili 1.3H BM: Pt with 1 BM 03/15 per RN note Skin: BS 16 mod risk, full details in pediatric care coordinator note. PES: 1) Altered nutrition related lab values r.t current chronic medical condition aeb hyperbil mod hypoalb Partially resolved, pt no longer NPO 2) Increased nutrient needs r/t chronic medical condition aeb pt`s underweight and with cancer NPO Comments: will continue to monitor PO intake, skin status. F/u low 5-7 days Rec: 1) consider prostat 1 packet bid. 2) consider ensure Enlive 1 carton bid instead of ensure clear. 3) continue current plan of care
[2020-03-19 17:00] VITALS: BP 114/75
--- NOTE | 2020-03-19 19:25 | NUR ---
Opening shift note Assumed care of patient from day shift RNKina. Patient sitting up in bed A&Ox4, respirations even and non-labored with no s/s of distress or c/o pain at this time. Discussed POC with patient who verbalized understanding, bed in lowest locked position with 2 side rails up. Patient cuffed to right side. Call light within reach, two guards bedside. Will continue to monitor Q1hr and PRN.
[2020-03-19 22:00] VITALS: BP 117/75
[2020-03-20] MEDS: oxyCODONE HCL 5MG TAB PO PRN ×3 (01:03→18:16)
[2020-03-20 05:14] VITALS: BP 129/77
[2020-03-20] MEDS: ENSURE CLEAR Apple 8oz Carton PO SCH ×4 (05:28→22:00)
[2020-03-20 06:16] LABS: Basophils # (auto) 0 10 ^3/uL (0-0.2); Basophils % (auto) 0.4 % (0.0-2.0); Eosinophils # (auto) 0 10 ^3/uL (0-0.8); Hematocrit 30.3 % (41.0-53.0); Hemoglobin 9.8 g/dL (13.5-17.5); Lymphocytes # (auto) 1.4 10 ^3/uL (0.4-5.4); Lymphocytes % (auto) 17.8 % (10.0-50.0); Mean Corpuscular Hemoglobin 28.8 pg (28.0-32.0); Mean Corpuscular Hgb Conc. 32.3 g/dL (32.0-36.0); Mean Corpuscular Volume 89.2 fL (80.0-100.0); Monocytes # (auto) 0.8 10 ^3/uL (0-1.3); Neutrophils # (auto) 5.8 10 ^3/uL (1.6-8.6); Neutrophils % (auto) 71.8 % (37.0-80.0); Platelet Count (auto) 228 10^3/uL (140-450); Red Blood Cells 3.39 10^6/uL (4.5-5.90); Red Cell Distribution Width 18.2 % (11.8-14.3); White Blood Cell 8.1 10^3/uL (4.4-10.8)
[2020-03-20 06:55] LABS: Albumin 1.6 g/dL (3.4-5.0); Calcium 7.7 mg/dL (8.5-10.1); Potassium 4.6 mmol/L (3.5-5.1)
[2020-03-20 07:01] LABS: BUN/Creatinine Ratio 23.1; Total Protein 6.3 g/dL (6.4-8.2)
--- NOTE | 2020-03-20 07:04 | NUR ---
Patient resting A&Ox4 without SOB or s/s of distress at this time. Two guards bedside.
[2020-03-20 08:00] VITALS: BP 113/77
--- NOTE | 2020-03-20 08:00 | NUR ---
Opening Shift Note Assumed care of patient, awake and alert. No S/S of distress/SOB or pain. Instructed on POC and to call for assist PRN. Bed at lowest locked position. Will continue to monitor for changes Q1hr and PRN.Guards at bedside for safety.
[2020-03-20 09:00] VITALS: BP 113/77
[2020-03-20] MEDS: POTASSIUM CHL 10 Meq TABLET PO SCH (09:42)
[2020-03-20] MEDS: PANTOPRAZOLE 40 MG TAB PO SCH (09:42)
[2020-03-20] MEDS: CHOLECALCIFEROL (VITD3) 1,000UNIT=25mCg TAB PO SCH (09:44)
[2020-03-20] MEDS: FUROSEMIDE 20 MG TAB PO SCH ×2 (09:44→18:15)
[2020-03-20] MEDS: FAMOTIDINE 20 MG TAB PO SCH (09:44)
--- NOTE | 2020-03-20 09:48 | NUR ---
pain Patient c/o abdominal pain. Pain medications administered per MD orders. Will continue to monitor. Guards at bedside for safety.
[2020-03-20 13:00] VITALS: BP 111/70
[2020-03-20 16:25] VITALS: BP 109/69
--- NOTE | 2020-03-20 18:20 | NUR ---
Pain Patient c/o abdominal pain, 12/04. Pain medication given per MD orders. Will continue to monitor PRN. Guards at bedside for safety.
--- NOTE | 2020-03-20 19:30 | NUR ---
Opening shift note Patient resting, respirations even and non-labored with no s/s of distress at this time. Several guards bedside. Patient cuffed to the right side. Bed in lowest locked position with 2 side rails up, call light within reach, will continue to monitor Q1hr and PRN.
--- NOTE | 2020-03-20 19:33 | NUR ---
Closing note Care endorsed to NOC RN, Guards at bedside for safety
[2020-03-20 22:00] VITALS: BP 122/74
[2020-03-21] VITALS (7 sets, daily range): BP systolic 119–124; BP diastolic 68–84
[2020-03-21] MEDS: POTASSIUM CHL 10 Meq TABLET PO SCH ×3 (00:21→21:44)
[2020-03-21] MEDS: oxyCODONE HCL 5MG TAB PO PRN ×4 (00:21→18:39)
[2020-03-21] MEDS: ENSURE CLEAR Apple 8oz Carton PO SCH ×4 (06:00→21:44)
[2020-03-21] MEDS: FUROSEMIDE 20 MG TAB PO SCH ×2 (06:55→18:39)
--- NOTE | 2020-03-21 07:30 | NUR ---
Closing shift note Patient resting, respirations even and non-labored with no s/s of distress at this time. Endorsed care to day shift RN, July.
--- NOTE | 2020-03-21 07:40 | NUR ---
Opening Shift Note Assumed care of patient, awake, alert, and oriented. Respirations are even and non labored on 2L NC. No S/S of distress/SOB or pain. Bed in lowest/locked position, bed rails up x2, call light within reach. Guards at bedside. Instructed on POC and to call for assist PRN. Will continue to monitor for changes Q1hr and PRN.
[2020-03-21] MEDS: PANTOPRAZOLE 40 MG TAB PO SCH (11:27)
[2020-03-21] MEDS: CHOLECALCIFEROL (VITD3) 1,000UNIT=25mCg TAB PO SCH (11:27)
[2020-03-21] MEDS: FAMOTIDINE 20 MG TAB PO SCH (11:27)
--- NOTE | 2020-03-21 19:00 | NUR ---
Opening Shift Note Assumed care of patient, awake and alert. No S/S of distress/SOB or pain. Guards at bedside. Instructed on POC and to call for assist PRN, will continue to monitor for changes Q1hr and PRN. Patient in the lowest possible position with call light within reach.
[2020-03-22] MEDS: oxyCODONE HCL 5MG TAB PO PRN ×3 (00:32→18:37)
[2020-03-22 05:00] VITALS: BP 114/69
[2020-03-22] MEDS: ENSURE CLEAR Apple 8oz Carton PO SCH ×4 (05:55→21:50)
[2020-03-22] MEDS: FUROSEMIDE 20 MG TAB PO SCH ×2 (05:56→18:36)
[2020-03-22 06:17] LABS: Potassium 4.6 mmol/L (3.5-5.1)
[2020-03-22 06:27] LABS: BUN/Creatinine Ratio 26.8; Calcium 7.6 mg/dL (8.5-10.1)
--- NOTE | 2020-03-22 07:25 | NUR ---
Opening Shift Note Assumed care of patient, awake, alert, and oriented. Respirations are even and non labored on room air. No S/S of distress/SOB or pain. Bed in lowest/locked position, bed rails up x2, call light within reach. Guards at bedside. Instructed on POC and to call for assist PRN. Will continue to monitor for changes Q1hr and PRN.
[2020-03-22] MEDS: FAMOTIDINE 20 MG TAB PO SCH (09:15)
[2020-03-22] MEDS: POTASSIUM CHL 10 Meq TABLET PO SCH ×2 (09:15→21:51)
[2020-03-22] MEDS: CHOLECALCIFEROL (VITD3) 1,000UNIT=25mCg TAB PO SCH (09:16)
[2020-03-22] MEDS: PANTOPRAZOLE 40 MG TAB PO SCH (09:16)
--- NOTE | 2020-03-22 11:39 | NUR ---
Pt was able to complete exercises while lying in supine. Pt worked on ankle pumps; heel slides, bridging and hip abd/add x 15 reps. Pt also sat at the [facility] and completed x 5 reps of sit to stand and while in standing completed mini squats, heel and toe raises and marching x 15 reps followed by T Y and I exercises, x 10 reps for latonia MORENO's Addendum: 03/22/20 at 1141 by Adrienne Harding PT Amended: Links added.
[2020-03-22 13:00] VITALS: BP 112/74
[2020-03-22 16:46] VITALS: BP 118/65
--- NOTE | 2020-03-22 19:00 | NUR ---
Opening Shift Note Assumed care of patient, awake and alert. No S/S of distress/SOB or pain. Instructed on POC and to call for assist PRN, will continue to monitor for changes Q1hr and PRN. Patient in the lowest possible position with bed rails up x2 and call light within reach. Guards at bedside. Will continue to monitor patient.
[2020-03-22 21:36] VITALS: BP 116/77
[2020-03-23] MEDS: ONDANSETRON HCL 4 MG/2 ML VIAL IV PRN ×2 (03:51→22:21)
[2020-03-23] MEDS: oxyCODONE HCL 5MG TAB PO PRN ×2 (04:15→10:20)
[2020-03-23 05:00] VITALS: BP 117/68
[2020-03-23] MEDS: FUROSEMIDE 20 MG TAB PO SCH ×2 (05:37→17:26)
[2020-03-23] MEDS: ENSURE CLEAR Apple 8oz Carton PO SCH ×4 (05:37→22:05)
--- NOTE | 2020-03-23 07:38 | NUR ---
Opening Note Assumed pt care from NOC RN. Pt is a/ox4 with no s/s of distress or SOB. Pt is currently sitting upright in bed with mild c/o pain at 5/10, discussed next available pain medication. Discussed POC with pt, pt verbalized understanding. Safety measures maintained with call light within reach, bed in lowest position and side rails up. Will continue to monitor for changes.
[2020-03-23] MEDS: FAMOTIDINE 20 MG TAB PO SCH (08:44)
[2020-03-23] MEDS: CHOLECALCIFEROL (VITD3) 1,000UNIT=25mCg TAB PO SCH (08:44)
[2020-03-23] MEDS: POTASSIUM CHL 10 Meq TABLET PO SCH ×2 (08:44→22:05)
[2020-03-23] MEDS: PANTOPRAZOLE 40 MG TAB PO SCH (08:44)
[2020-03-23 09:03] VITALS: BP 116/73
[2020-03-23 12:57] VITALS: BP 109/71
[2020-03-23 17:08] VITALS: BP 105/71
[2020-03-23 20:00] VITALS: BP 117/76
[2020-03-23 22:00] VITALS: BP 117/76
[2020-03-24] MEDS: chlorproMAZINE INECTION 25 MG in SODIUM CHL 0.9% 50 ML IV PRN (01:53)
--- NOTE | 2020-03-24 02:15 | NUR ---
IV insertion IV access obtained, via clean sterile technique by inserting 22 gauge catheter at left upper arm after 1 attempt. IV secured properly. No trauma to site. Patient tolerated well. NOTE: previous IV began to leak. No adverse events when removing the old IV. Catheter was intact.
[2020-03-24 05:30] VITALS: BP 116/68
[2020-03-24] MEDS: FUROSEMIDE 20 MG TAB PO SCH ×2 (05:58→18:00)
[2020-03-24] MEDS: ENSURE CLEAR Apple 8oz Carton PO SCH ×4 (05:58→22:39)
--- NOTE | 2020-03-24 07:40 | NUR ---
Opening Note Assumed pt care from NOC RN. Pt is a/ox4 with no s/s of distress or SOB. Pt is currently sitting upright in bed with no complaints at this time. Discussed POC with pt, pt verbalized understanding. Safety measures maintained with call light within reach, bed in lowest position and side rails up. Will continue to monitor for changes.
[2020-03-24 09:00] VITALS: BP 119/76
[2020-03-24] MEDS: POTASSIUM CHL 10 Meq TABLET PO SCH ×2 (09:04→22:39)
[2020-03-24] MEDS: FAMOTIDINE 20 MG TAB PO SCH (09:04)
[2020-03-24] MEDS: CHOLECALCIFEROL (VITD3) 1,000UNIT=25mCg TAB PO SCH (09:04)
[2020-03-24] MEDS: PANTOPRAZOLE 40 MG TAB PO SCH (09:04)
[2020-03-24 13:00] VITALS: BP 118/71
--- NOTE | 2020-03-24 14:02 | NUR ---
Nutrition Followup Note Wt 60.2 kg Pt was sleeping with guards at bedside at time of rounds. Pt appetite appears to be fair aeb pt with 56% po intake of regular diet x 3 days per RN note. Pt with Ensure Clear QID Est Energy needs IBW 70 [id number] kcals (25-30 kcal/kgIBW), Est Protein needs: 70-84 gms/day (1.0-1.2 gm/kgIBW). Will continue to monitor and reassess prn. Labs: BUN 26H, Ca 7.6L, Alb 1.6L BM: Pt with 3 BMs 03/24 per RN note Skin: BS 21 low risk, full details in foster care worker note. PES: 1) Altered nutrition related lab values r.t current chronic medical condition aeb hyperbil mod hypoalb Partially resolved, pt no longer NPO 2) Increased nutrient needs r/t chronic medical condition aeb pt`s underweight and with cancer NPO Comments: will continue to monitor PO intake, skin status. F/u low 5-7 days Rec: 1) consider prostat 1 packet bid. 2) consider ensure Enlive 1 carton bid instead of ensure clear. 3) continue current plan of care
[2020-03-24] MEDS: oxyCODONE HCL 5MG TAB PO PRN ×2 (16:43→22:39)
[2020-03-24 17:00] VITALS: BP 123/75
[2020-03-24 20:00] VITALS: BP 121/77
[2020-03-24 22:00] VITALS: BP 121/77
[2020-03-25 05:00] VITALS: BP 118/82
[2020-03-25] MEDS: FUROSEMIDE 20 MG TAB PO SCH ×3 (05:48→18:39)
[2020-03-25] MEDS: ENSURE CLEAR Apple 8oz Carton PO SCH ×4 (05:48→21:24)
--- NOTE | 2020-03-25 07:20 | NUR ---
Opening Shift Note: Assumed care of patient, awake and alert. No S/S of distress/SOB or pain. bed in lowest locked position, side rails up x 2, call light within reach. Patient instructed on POC and to call for assist PRN, will continue to monitor for changes Q1hr and PRN.
[2020-03-25 09:00] VITALS: BP 112/77
[2020-03-25] MEDS: POTASSIUM CHL 10 Meq TABLET PO SCH ×4 (09:37→21:24)
[2020-03-25] MEDS: CHOLECALCIFEROL (VITD3) 1,000UNIT=25mCg TAB PO SCH (09:38)
[2020-03-25] MEDS: FAMOTIDINE 20 MG TAB PO SCH (09:38)
[2020-03-25] MEDS: PANTOPRAZOLE 40 MG TAB PO SCH (09:38)
[2020-03-25] MEDS: oxyCODONE HCL 5MG TAB PO PRN (09:39)
[2020-03-25 13:00] VITALS: BP 121/77
--- NOTE | 2020-03-25 14:27 | NUR ---
PATIENT WAS ABLE TO GAIT AROUND NURSES STATION USING FWW MIN A. PATIENT HAD C/O INCREASED PAIN AND DISCOMFORT IN ABDOMEN AREA RATING PAIN LEVEL 8/10. PATIENT DID EXPERIENCE SOB AND DIZZINESS TOWARDS THE END OF HIS GAIT WHEN HE WAS IN PROXIMITY OF HIS ROOM. PATIENT WAS PLACED BACK TO BED IN SUPINE ALONG W/ CALL LIGHT W/IN REACH. Addendum: 03/25/20 at 1429 by Adrienne Harding PT Amended: Links added.
[2020-03-25] MEDS: chlorproMAZINE INECTION 25 MG in SODIUM CHL 0.9% 50 ML IV PRN (14:51)
[2020-03-25 16:31] VITALS: BP 102/64
--- NOTE | 2020-03-25 18:58 | NUR ---
CLOSING NOTE: PATIENT RESTING IN BED. NO S/S OF DISTRESS.
[2020-03-25 20:00] VITALS: BP 121/72
[2020-03-25 21:58] VITALS: BP 121/70
[2020-03-26] MEDS: oxyCODONE HCL 5MG TAB PO PRN ×4 (03:39→22:27)
[2020-03-26 05:19] VITALS: BP 109/69
[2020-03-26] MEDS: FUROSEMIDE 20 MG TAB PO SCH ×2 (06:00→17:53)
[2020-03-26] MEDS: ENSURE CLEAR Apple 8oz Carton PO SCH ×4 (06:16→22:26)
[2020-03-26 07:41] LABS: INR 1.29 (0.9-1.15); Partial Thromboplastin Time 33.6 sec (23.0-31.2)
[2020-03-26 07:47] LABS: Albumin 1.5 g/dL (3.4-5.0); Calcium 7.8 mg/dL (8.5-10.1); Potassium 4.3 mmol/L (3.5-5.1)
[2020-03-26 07:56] LABS: BUN/Creatinine Ratio 19.3; Bilirubin, Total 1.4 mg/dL (0.2-1.0); Total Protein 5.8 g/dL (6.4-8.2)
[2020-03-26 08:20] VITALS: BP 122/78
--- NOTE | 2020-03-26 08:20 | NUR ---
Opening Shift Note Received report from night baker nurse, assumed care of patient, awake and alert. Nasal cannula in place PRN at 2L, no signs of distress/SOB. Patient complains of pain 5/10 pain. Patient instructed on POC and to call for assist PRN, will continue to monitor for changes Q1hr and PRN.
[2020-03-26 08:23] LABS: Basophils # (auto) 0 10 ^3/uL (0-0.2); Basophils % (auto) 0.4 % (0.0-2.0); Eosinophils # (auto) 0 10 ^3/uL (0-0.8); Eosinophils % (auto) 0.2 % (0.0-7.0); Hematocrit 29.2 % (41.0-53.0); Hemoglobin 9.8 g/dL (13.5-17.5); Lymphocytes # (auto) 2.5 10 ^3/uL (0.4-5.4); Lymphocytes % (auto) 38.1 % (10.0-50.0); Mean Corpuscular Hemoglobin 29.9 pg (28.0-32.0); Mean Corpuscular Hgb Conc. 33.5 g/dL (32.0-36.0); Mean Corpuscular Volume 89.4 fL (80.0-100.0); Monocytes # (auto) 0.5 10 ^3/uL (0-1.3); Monocytes % (auto) 8.1 % (0.0-12.0); Neutrophils # (auto) 3.5 10 ^3/uL (1.6-8.6); Neutrophils % (auto) 53.2 % (37.0-80.0); Nucleated Red Blood Cells % 0.3 %; Platelet Count (auto) 164 10^3/uL (140-450); Red Blood Cells 3.27 10^6/uL (4.5-5.90); Red Cell Distribution Width 18.8 % (11.8-14.3); White Blood Cell 6.5 10^3/uL (4.4-10.8)
[2020-03-26 09:00] VITALS: BP 122/78
[2020-03-26] MEDS: CHOLECALCIFEROL (VITD3) 1,000UNIT=25mCg TAB PO SCH (09:39)
[2020-03-26] MEDS: PANTOPRAZOLE 40 MG TAB PO SCH (09:40)
[2020-03-26] MEDS: POTASSIUM CHL 10 Meq TABLET PO SCH ×2 (09:40→22:26)
[2020-03-26] MEDS: FAMOTIDINE 20 MG TAB PO SCH (09:40)
--- NOTE | 2020-03-26 09:40 | NUR ---
PAIN MANAGEMENT PATIENT GIVEN OXYCODONE ORDERED PRN FOR PAIN LEVEL 5/10. WILL CONTINUE TO MONITOR.
[2020-03-26] MEDS ORDERED: IOHEXOL 300 MG/ML 100ML BOTTLE IJ ONE (10:29)
--- NOTE | 2020-03-26 11:51 | NUR ---
PATIENT BACK FROM CT PER RADIOLOGY, CT COULD NOT BE DONE DUE TO IV NOT WORKING, [address] IV WERE MADE WITH NO SUCCESS. WILL CALL PICC LINE NURSE FOR MIDLINE PLACEMENT.
[2020-03-26 13:00] VITALS: BP 120/79
--- NOTE | 2020-03-26 14:00 | NUR ---
PAGED PICC LINE RN AT THIS TIME.
--- NOTE | 2020-03-26 14:34 | NUR ---
ATTEMPTED IV START AT THIS TIME. TWO UNSUCCESSFUL ATTEMPTS. PAGED PICC LINE RN.
--- NOTE | 2020-03-26 14:46 | NUR ---
Midline Placement: Patient educated on need for midline placement. All risks and benefits explained and all questions and concerns addresses prior to procedure. 18g/10cm midline inserted via RIGHT BRACHIAL vein using Ultrasound. Sterile technique utilized. Blood return obtained from THE SINGLE lumen and flushed easily with NS using proper technique. Midline secured with saline lock; biodisc and occlusive dressing applied. Primary RN KEIRY notified. Midline lot # [id number]
--- NOTE | 2020-03-26 16:13 | NUR ---
Pt refused PT tx. Addendum: 03/26/20 at 1614 by Efra Olmedo DRUG CLERK Amended: Links added.
[2020-03-26] MEDS: chlorproMAZINE INECTION 25 MG in SODIUM CHL 0.9% 50 ML IV PRN (16:28)
[2020-03-26 17:00] VITALS: BP 151/86
--- NOTE | 2020-03-26 18:47 | NUR ---
CLOSING NOTE: PATIENT ASLEEP IN BED. RESPIRATIONS EVEN AND UNLABORED, 14 BREATHS PER MINUTE. NO S/S OF DISTRESS.
--- NOTE | 2020-03-26 19:00 | NUR ---
Opening Shift Note Received shift report from Beti RN. Assumed care of patient, awake and alert. No S/S of distress/SOB or pain. Instructed on POC and to call for assist PRN, bed in lowest locked position, side rails up times 2. Will continue to monitor for changes Q1hr and PRN.
[2020-03-27 05:00] VITALS: BP 112/65
[2020-03-27] MEDS: ENSURE CLEAR Apple 8oz Carton PO SCH ×4 (05:19→22:40)
[2020-03-27] MEDS: FUROSEMIDE 20 MG TAB PO SCH ×2 (06:08→18:22)
--- NOTE | 2020-03-27 07:50 | NUR ---
RECEIVED PATIENT ALERT AND ORIENTED X4, NOT IN DISTRESS, CLEAR LS IN BILATERAL LUNG LOBES, RR=18, DEEP BREATHING AND COUGHING ENCOURAGED, DEMONSTRATED AND VERBALIZED UNDERSTANDING, DENIED CHEST PAIN AND SOB, HEART R=96, ABDOMEN SOFT WITH ACTIVE BS , LAST BM= REPORTED, C/O RT. UPPER ABDOMINAL PAIN L=09/03 REPORTED, NOT DUE FOR PAIN MEDICATION AT THIS MOMENT ORDERED, SKIN INTACT WARM TO TOUCH, RADIAL AND PEDAL PULSES PALPABLE, RESTING ON BED, HEAD OF BED ELEVATED, BED ON LOW POSITION, RAILS UP X2, CALL LIGHT ON REACH, WILL CONTINUE MONITORING.
[2020-03-27 09:00] VITALS: BP 148/82
[2020-03-27] MEDS: FAMOTIDINE 20 MG TAB PO SCH (10:06)
[2020-03-27] MEDS: POTASSIUM CHL 10 Meq TABLET PO SCH ×2 (10:06→22:40)
[2020-03-27] MEDS: PANTOPRAZOLE 40 MG TAB PO SCH (10:06)
[2020-03-27] MEDS: CHOLECALCIFEROL (VITD3) 1,000UNIT=25mCg TAB PO SCH (10:07)
[2020-03-27] MEDS: oxyCODONE HCL 5MG TAB PO PRN ×3 (10:20→22:40)
[2020-03-27 13:00] VITALS: BP 165/86
[2020-03-27 17:00] VITALS: BP 144/86
--- NOTE | 2020-03-27 19:48 | NUR ---
REPORT WAS GIVEN TO THE DIRECTOR PEOPLESOFT RN.
--- NOTE | 2020-03-27 20:00 | NUR ---
open note assumed care of pt. upon entering room pt has guards at bedside. pt awake and alert on room air no distress noted or expressed. pt oriented to this nurse and updated on plan of care. pt bed locked, low and 2x rails up. call light in reach. pt assisted out of bed and able to ambulate via walker without incident. pt encouraged to call as needed.
[2020-03-27 20:30] VITALS: BP 144/86
[2020-03-27] MEDS: ENOXAPARIN SOD 60 MG/0.6 ML SYRINGE SC SCH (22:39)
[2020-03-28] MEDS: oxyCODONE HCL 5MG TAB PO PRN ×4 (04:34→23:28)
[2020-03-28 05:00] VITALS: BP 134/79
[2020-03-28] MEDS: FUROSEMIDE 20 MG TAB PO SCH ×2 (06:32→17:11)
[2020-03-28] MEDS: ENSURE CLEAR Apple 8oz Carton PO SCH ×4 (06:32→21:23)
--- NOTE | 2020-03-28 08:00 | NUR ---
RECEIVED PATIENT ALERT AND ORIENTED X4, NOT IN DISTRESS, WHEEZING LS IN BILATERAL LUNG LOBES, RR=18, DEEP BREATHING AND COUGHING ENCOURAGED, DEMONSTRATED AND VERBALIZED UNDERSTANDING, DENIED CHEST PAIN AND SOB, HEART R=90, ABDOMEN SOFT WITH ACTIVE BS , LAST BM=03/27/20 REPORTED, C/O RT. UPPER ABDOMINAL PAIN L=4/10 REPORTED, SKIN INTACT WARM TO TOUCH, RADIAL AND PEDAL PULSES PALPABLE, RESTING ON BED, HEAD OF BED ELEVATED, BED ON LOW POSITION, RAILS UP X2, CALL LIGHT ON REACH, GUARDS IN THE ROOM, WILL CONTINUE MONITORING.
[2020-03-28 09:00] VITALS: BP 130/73
[2020-03-28] MEDS: FAMOTIDINE 20 MG TAB PO SCH (10:33)
[2020-03-28] MEDS: POTASSIUM CHL 10 Meq TABLET PO SCH ×2 (10:33→21:22)
[2020-03-28] MEDS: PANTOPRAZOLE 40 MG TAB PO SCH (10:33)
[2020-03-28] MEDS: CHOLECALCIFEROL (VITD3) 1,000UNIT=25mCg TAB PO SCH (10:34)
[2020-03-28] MEDS: ENOXAPARIN SOD 60 MG/0.6 ML SYRINGE SC SCH ×2 (10:46→21:22)
[2020-03-28 13:00] VITALS: BP 114/77
--- NOTE | 2020-03-28 16:00 | NUR ---
RESTING ON BED,Q2 HOURS POSITION CHANGE ENCOURAGED, DEMONSTRATED WELL, TOLERATED PROVIDED DIET TRAYS WELL, SKIN KEEP CLEAN AND DRY, HEAD OF BED ELEVATED, BED ON LOW POSITION, RAILS UP, CALL LIGHT ON REACH, WILL CONTINUE MONITORING.
[2020-03-28 17:00] VITALS: BP 117/76
[2020-03-28] MEDS: ONDANSETRON HCL 4 MG/2 ML VIAL IV PRN (17:11)
--- NOTE | 2020-03-28 19:31 | NUR ---
NOT IN DISTRESS, RESTING ON BED, REPORT WAS GIVEN TO THE VERIFICATION SPECIALIST RN.
[2020-03-28 22:00] VITALS: BP 115/73
[2020-03-29 04:36] VITALS: BP 110/73
[2020-03-29] MEDS: FUROSEMIDE 20 MG TAB PO SCH ×2 (04:55→17:42)
[2020-03-29] MEDS: oxyCODONE HCL 5MG TAB PO PRN ×4 (04:56→23:49)
[2020-03-29] MEDS: ENSURE CLEAR Apple 8oz Carton PO SCH ×4 (04:56→21:35)
--- NOTE | 2020-03-29 08:50 | NUR ---
SPONGE FOAM TAPE PLACED TO RIGHT ANKLE FOR SKIN BREAK DOWN PREVENTION. WILL CONTINUE TO MONITOR.
[2020-03-29 09:00] VITALS: BP 113/78
[2020-03-29] MEDS: PANTOPRAZOLE 40 MG TAB PO SCH (10:39)
[2020-03-29] MEDS: FAMOTIDINE 20 MG TAB PO SCH (10:39)
[2020-03-29] MEDS: CHOLECALCIFEROL (VITD3) 1,000UNIT=25mCg TAB PO SCH (10:39)
[2020-03-29] MEDS: ENOXAPARIN SOD 60 MG/0.6 ML SYRINGE SC SCH ×2 (10:39→19:51)
[2020-03-29] MEDS: POTASSIUM CHL 10 Meq TABLET PO SCH ×2 (10:40→21:35)
--- NOTE | 2020-03-29 12:45 | NUR ---
Nutrition Followup Note Wt 60.0 kg Pt with no new complaints at time of rounds. Pt is with a Regular diet with 100% po intake x 2 days per Rn note. Pt is also with Ensure Clear QID Est Energy needs IBW 70 [id number] kcals (25-30 kcal/kgIBW), Est Protein needs: 70-84 gms/day (1.0-1.2 gm/kgIBW). Will continue to monitor and reassess prn. Labs: Na 135L, GLUC 67L, Alb 1.5L, Ca 7.8L, T bili 1.4H BM: Pt with 1 BM / per RN note Skin: BS 17 mod risk, full details in senior care assistant note. PES: 1) Altered nutrition related lab values r.t current chronic medical condition aeb hyperbil mod hypoalb Partially resolved, pt no longer NPO 2) Increased nutrient needs r/t chronic medical condition aeb pt`s underweight and with cancer NPO Comments: will continue to monitor PO intake, skin status. F/u low 5-7 days Rec: 1) consider prostat 1 packet bid. 2) consider ensure Enlive 1 carton bid instead of ensure clear. 3) continue current plan of care
[2020-03-29 14:08] VITALS: BP 113/71
[2020-03-29] MEDS: ONDANSETRON HCL 4 MG/2 ML VIAL IV PRN ×2 (16:27→22:44)
[2020-03-29 16:32] VITALS: BP 140/76
--- NOTE | 2020-03-29 19:40 | NUR ---
Opening Shift Note Assumed care of patient, awake and alert. No S/S of distress/SOB. Guards at bedside. Instructed on POC and to call for assist PRN, Patient verbalized understanding and in agreement. Fall and safety precautions in place. Call light within reach and able to use. Will continue to monitor for changes Q1hr and PRN.
[2020-03-29 22:00] VITALS: BP 112/71
[2020-03-30 05:00] VITALS: BP 119/78
[2020-03-30] MEDS: ENSURE CLEAR Apple 8oz Carton PO SCH ×4 (05:45→21:03)
[2020-03-30] MEDS: FUROSEMIDE 20 MG TAB PO SCH ×2 (05:46→17:54)
[2020-03-30] MEDS: ONDANSETRON HCL 4 MG/2 ML VIAL IV PRN (05:46)
[2020-03-30] MEDS: oxyCODONE HCL 5MG TAB PO PRN ×3 (05:52→17:52)
[2020-03-30 08:00] VITALS: BP 141/82
[2020-03-30 09:00] VITALS: BP 141/82
[2020-03-30] MEDS: POTASSIUM CHL 10 Meq TABLET PO SCH ×2 (10:00→21:04)
[2020-03-30] MEDS: ENOXAPARIN SOD 60 MG/0.6 ML SYRINGE SC SCH ×2 (10:00→19:45)
[2020-03-30] MEDS: FAMOTIDINE 20 MG TAB PO SCH (10:00)
[2020-03-30] MEDS: PANTOPRAZOLE 40 MG TAB PO SCH (10:01)
[2020-03-30] MEDS: CHOLECALCIFEROL (VITD3) 1,000UNIT=25mCg TAB PO SCH (10:01)
[2020-03-30 13:00] VITALS: BP 106/68
[2020-03-30 17:23] VITALS: BP 115/74
--- NOTE | 2020-03-30 18:35 | NUR ---
PATIENT STATING HE CANNOT BREATH, PATIENT STATING HE IS UNABLE TO EXHALE. I SAT PATIENT UP AND PLACED OXYGEN, DISTRACTED PATIENT AND PATIENT WAS ABLE TO BREATH WITHOUT PANIC.
--- NOTE | 2020-03-30 19:30 | NUR ---
Opening Shift Note Assumed care of patient, awake and alert. No S/S of distress/SOB. Instructed on POC and to call for assist PRN, Patient verbalized understanding and in agreement. Fall and safety precautions in place. Call light within reach and able to use. Will continue to monitor for changes Q1hr and PRN.
[2020-03-30 22:00] VITALS: BP 100/63
[2020-03-31 05:00] VITALS: BP 106/64
[2020-03-31] MEDS: FUROSEMIDE 20 MG TAB PO SCH ×2 (05:41→17:44)
[2020-03-31] MEDS: ENSURE CLEAR Apple 8oz Carton PO SCH ×4 (05:41→21:03)
[2020-03-31] MEDS: oxyCODONE HCL 5MG TAB PO PRN ×4 (05:41→22:17)
[2020-03-31] MEDS: ONDANSETRON HCL 4 MG/2 ML VIAL IV PRN (05:42)
[2020-03-31 09:00] VITALS: BP 107/75
[2020-03-31] MEDS: FAMOTIDINE 20 MG TAB PO SCH (09:28)
[2020-03-31] MEDS: ENOXAPARIN SOD 60 MG/0.6 ML SYRINGE SC SCH ×2 (09:29→19:38)
[2020-03-31] MEDS: POTASSIUM CHL 10 Meq TABLET PO SCH ×2 (09:29→21:03)
[2020-03-31] MEDS: PANTOPRAZOLE 40 MG TAB PO SCH (09:29)
[2020-03-31] MEDS: CHOLECALCIFEROL (VITD3) 1,000UNIT=25mCg TAB PO SCH (09:30)
[2020-03-31 13:00] VITALS: BP 102/67
[2020-03-31 17:00] VITALS: BP 102/68
[2020-03-31 21:00] VITALS: BP 101/66
[2020-04-01] VITALS (17 sets, daily range): BP systolic 67–142; BP diastolic 27–79
[2020-04-01] MEDS: ENSURE CLEAR Apple 8oz Carton PO SCH ×4 (05:41→22:00)
[2020-04-01] MEDS: FUROSEMIDE 20 MG TAB PO SCH ×2 (05:41→17:31)
[2020-04-01] MEDS: oxyCODONE HCL 5MG TAB PO PRN ×2 (05:49→13:57)
[2020-04-01] MEDS: ENOXAPARIN SOD 60 MG/0.6 ML SYRINGE SC SCH ×2 (08:25→23:00)
--- NOTE | 2020-04-01 09:00 | NUR ---
Breakfast Patient refusing to eat, states he has no appetite at the moment.
[2020-04-01] MEDS: FAMOTIDINE 20 MG TAB PO SCH (09:08)
[2020-04-01] MEDS: PANTOPRAZOLE 40 MG TAB PO SCH (09:08)
[2020-04-01] MEDS: POTASSIUM CHL 10 Meq TABLET PO SCH ×2 (09:08→22:00)
[2020-04-01] MEDS: CHOLECALCIFEROL (VITD3) 1,000UNIT=25mCg TAB PO SCH (09:09)
--- NOTE | 2020-04-01 09:30 | NUR ---
Hospitalist Rounded Dr. Platt rounded on patient.
--- NOTE | 2020-04-01 17:45 | NUR ---
Hospitalist Paged Patient noted to be confused and has been refusing meals. Patient is having SOB and saturation on room air 87. O2 via nasal canula at 4L and patient's saturation is 99. HR 47, rechecked and it was 84. BP 142/79.
--- NOTE | 2020-04-01 18:19 | NUR ---
Second page to Hospitalist Re-paged Dr. Platt regarding patient's status. Patient is still refusing to eat and is just laying in bed moaning. Patient is also exhibiting signs of confusion. He is alert to person and place.
--- NOTE | 2020-04-01 18:25 | NUR ---
Hospitalist Returned call Spoke with Dr. Platt on phone regarding patient's condition. No new orders received, continue to monitor patient.
--- NOTE | 2020-04-01 19:30 | NUR ---
Shift Closing note Patient laying in bed verbally unresponsive. Face sheet sent to night monitor room requesting tele monitor for patient. Report given to Yamilex incoming RN. cio notified of patient's current condition.
[2020-04-01] MEDS ORDERED: SUCCINYLCHOLINE CHLORIDE 20 MG/ML 10ML VIAL IV ONE ×2 (19:57→20:45)
[2020-04-01] MEDS ORDERED: ETOMIDATE (2MG/ML) 20ML VIAL IV ONE ×2 (19:57→20:45)
--- NOTE | 2020-04-01 20:20 | NUR ---
CODE ASSIST CALLED. PT UNRESPONSIVE WITH AGONAL BREATHING REQUIRING INTUBATION. PT INTUBATED BY MYSELF WITH AN 8.0 ETT AND SECURED BY HEMA. DR. MERRITT AT BEDSIDE. TUBE PLACEMENT CONFIRMED BY CAPNOMETER, BILATERAL BREATH SOUNDS AND RISE. PT TRANSPORTED TO WAITER/WAITRESS BAR ICU AND PLACED ON VENT. SETTINGS 16, 500, +5, AND 100%. WILL DRAW POST INTUBATION ABG.
--- NOTE | 2020-04-01 20:30 | NUR ---
Admit to [facility] ICU from [facility] after code assist WESLEY MATHIS admitted to [facility] as ICU patient via bed on personnel monitor, intubated and being bagged by Respiratory Therapist. Patient is connected to mechanical ventilator by therapist, HUSSEIN at bedside. Patient connected to ICU monitoring, weighed by arlyn, oriented to Tyrel mejia RN, unit, ventilator and sedation. Addendum: 04/02/20 at 0258 by Tyrel Hendrix RN UNABLE GET TEMPERATURE ORALLY OR AXILLARY.
[2020-04-01] MEDS: PHENYLEPHRINE IV 250 ML IV SCH (20:45)
[2020-04-01] MEDS ORDERED: PROPOFOL 100 ML IV SCH (20:45)
[2020-04-01] MEDS ORDERED: fentaNYL Drip 2500mCg/250mlNS 250 ML IV SCH (20:45)
[2020-04-01] MEDS ORDERED: MIDAZOLAM DRIP 50 mg/50mL 50 ML IV SCH (20:45)
--- NOTE | 2020-04-01 21:00 | NUR ---
ABG DRAWN. FIO2 TITRATED TO 60%. RESULTS REPORTED TO DR. BORDEN.
--- NOTE | 2020-04-01 21:45 | NUR ---
Carrero catheter insertion Patient assessed and determined to be in need of carrero catheter. Order obtained from MD. Patient educated on catheter and reason for insertion. All questions answered. Carrero catheter 16 guage Amharic inserted with clean sterile technique. Patient tolerated well.
--- NOTE | 2020-04-01 21:55 | NUR ---
HYPOTHERMIA TEMPERATURE 91.6 F RECTALLY. NITA HUGGER BLANKET PLACED ON PLACED.
[2020-04-01] MEDS ORDERED: SODIUM BICARBONATE 8.4% INJ 50ML SYRINGE ONE ×2 (22:16→22:58)
[2020-04-01] MEDS ORDERED: SODIUM BICARBONATE 8.4 % INJ 50ML VIAL IV ONE (23:00)
[2020-04-01] MEDS ORDERED: NOREPINEPHRINE 8 MG/250ML KIT 250 ML IV SCH (23:00)
--- NOTE | 2020-04-01 23:00 | NUR ---
IV insertion IV access obtained, via clean sterile technique by inserting 22 gauge catheter at rt.hand by Lorena PAGAN. IV secured properly. No trauma to site. Patient tolerated procedure well.
[2020-04-01] MEDS ORDERED: NOREPINEPHRINE 8 MG/250ML KIT 250 ML IV ONE (23:04)
--- NOTE | 2020-04-01 23:15 | NUR ---
Oral gastric tube insertion OGT inserted per MD order. Placement verified by aspiration of stomach contents, and auscultation.
[2020-04-01] MEDS: D5W/SOD CHL 0.45% 1,000 ML IV SCH (23:30)
[2020-04-02] VITALS (57 sets, daily range): BP systolic 62–117; BP diastolic 30–87
[2020-04-02] MEDS: PHENYLEPHRINE IV 250 ML IV SCH ×3 (02:05→08:10)
--- NOTE | 2020-04-02 05:15 | NUR ---
MORNING LABS BLOOD DRAW WAS DONE BY CRACKING AND FANNING MACHINE OPERATOR AT 0400. LATER LAB CALLED AND SAID PATIENT'S POTASSIUM SHOWING ABOVE 8 AND BLOOD LOOK HEMOLYZED SO WE NEED TO DO A REDRAW. WAITING FOR LAB TO DO REDRAW.
[2020-04-02] MEDS ORDERED: PHENYLEPHRINE HCL 10 MG/ML VL ONE (05:17)
[2020-04-02] MEDS: D5W/SOD CHL 0.45% 1,000 ML IV SCH (05:30)
[2020-04-02] MEDS: ENSURE CLEAR Apple 8oz Carton PO SCH (05:31)
[2020-04-02] MEDS: FUROSEMIDE 20 MG TAB PO SCH (05:31)
--- NOTE | 2020-04-02 06:00 | NUR ---
HEATING MEASURES ARE CONTINUING DUE TO HYPOTHERMIA.
--- NOTE | 2020-04-02 06:45 | NUR ---
MORNING LAB SANDER HAND NOT YET HERE. I REDREW BLOOD FOR MORNING LABS.
[2020-04-02 07:11] LABS: Eosinophils # (auto) 0.1 10 ^3/uL (0-0.8); Hematocrit 21.3 % (41.0-53.0); Lymphocytes # (auto) 1.2 10 ^3/uL (0.4-5.4); Neutrophils # (auto) 5.4 10 ^3/uL (1.6-8.6); Platelet Count (auto) 105 10^3/uL (140-450)
[2020-04-02 07:13] LABS: Basophils # (auto) 0.1 10 ^3/uL (0-0.2); Basophils % (auto) 0.9 % (0.0-2.0); Eosinophils % (auto) 1.3 % (0.0-7.0); Lymphocytes % (auto) 16.9 % (10.0-50.0); Mean Corpuscular Hemoglobin 30.4 pg (28.0-32.0); Mean Corpuscular Hgb Conc. 29.5 g/dL (32.0-36.0); Monocytes # (auto) 0.3 10 ^3/uL (0-1.3); Monocytes % (auto) 3.6 % (0.0-12.0); Neutrophils % (auto) 77.3 % (37.0-80.0); Nucleated Red Blood Cells % 0.3 %; Red Blood Cells 2.07 10^6/uL (4.5-5.90)
[2020-04-02 07:23] LABS: Red Cell Distribution Width 20.9 % (11.8-14.3)
[2020-04-02] MEDS ORDERED: SODIUM BICARBONATE 8.4 % INJ 50ML VIAL IV ONE ×3 (08:00→08:45)
[2020-04-02] MEDS ORDERED: SODIUM BICARBONATE 50ML VIAL 50 ML in D5W/SOD CHL 0.45% 1,000 ML IV SCH (08:00)
--- NOTE | 2020-04-02 08:00 | NUR ---
UNABLE TO GET SPO2 READING.
[2020-04-02] MEDS ORDERED: SODIUM BICARBONATE 8.4% INJ 50ML SYRINGE ONE ×2 (08:03→08:36)
--- NOTE | 2020-04-02 08:15 | NUR ---
PAGED DR. BORDEN REGARDING HEMOGLOBIN, K LEVEL AND CHANGE IN CONDITION.
[2020-04-02 08:16] LABS: Anion Gap 26 (5-15); BUN/Creatinine Ratio 14.6; Blood Urea Nitrogen 38 mg/dL (7-18); Chloride 102 mmol/L (98-107); GFR African American 32 mL/min; GFR Non-African American 27 mL/min; Glucose 93 mg/dL (74-106); Sodium 137 mmol/L (136-145)
[2020-04-02 08:17] LABS: Alanine Aminotransferase 849 U/L (16-61); Albumin 1.6 g/dL (3.4-5.0); Alkaline Phosphatase 240 U/L (45-117); Aspartate Aminotransferase 18639 U/L (15-37); Bilirubin, Total 2.9 mg/dL (0.2-1.0); Calcium 7.3 mg/dL (8.5-10.1); Total Protein 5.7 g/dL (6.4-8.2)
[2020-04-02 08:31] LABS: Carbon Dioxide 9 mmol/L (21-32); Potassium 8.4 mmol/L (3.5-5.1)
--- NOTE | 2020-04-02 08:35 | NUR ---
HOSPITALIST ORDERS FOR HYPERKALEMIA RECEIVED FROM BELTRAN TALAMANTES NP.
[2020-04-02] MEDS ORDERED: CALCIUM GLUC 4.65meq/50ml D5AE 0 ML IV ONE (08:36)
[2020-04-02] MEDS ORDERED: CALCIUM CHLOR(10%) 100MG/ML 10ML SYRINGE IV ONE (08:36)
[2020-04-02] MEDS ORDERED: InsuLIN REG 1unit/0.01ml Soln (100units/ml) ONE (08:38)
[2020-04-02] MEDS ORDERED: DEXTROSE 50% SYRINGE 50 ML IV ONE (08:38)
[2020-04-02] MEDS ORDERED: InsuLIN REG 1unit/0.01ml Soln (100units/ml) IV ONE (08:45)
[2020-04-02] MEDS ORDERED: ALBUTEROL SULF 2.5 MG/0.5ML(0.5%) NEB SOLN NEB ONE (08:45)
[2020-04-02] MEDS ORDERED: DEXTROSE (50%) 50ML SYRG IV ONE (08:45)
[2020-04-02] MEDS ORDERED: SODIUM ZIRCONIUM CYCL 10 GM PAK PO ONE (08:45)
[2020-04-02] MEDS ORDERED: CALCIUM CHL 100MG/ML 1,000 MG in D5W 5% 100 ML IV ONE (08:45)
[2020-04-02] MEDS ORDERED: DOPamine 1600MCG/ML D5W 250 ML IV SCH (08:50)
[2020-04-02] MEDS ORDERED: DOPamine 1600MCG/ML D5W 250 ML IV ONE (08:52)
[2020-04-02] MEDS ORDERED: ALBUTEROL SULF 2.5 MG/0.5ML(0.5%) NEB SOLN ONE (08:59)
[2020-04-02] MEDS ORDERED: SODIUM ZIRCONIUM CYCL 10 GM PAK ONE (08:59)
[2020-04-02] MEDS: ENOXAPARIN SOD 60 MG/0.6 ML SYRINGE SC SCH (09:00)
--- NOTE | 2020-04-02 09:00 | NUR ---
ALBUTEROL 20MG GIVEN VIA INLINE WITH VENTILATOR, FOR HYPERKALEMIA.
--- NOTE | 2020-04-02 09:10 | NUR ---
MD DID NOT CALL BACK PAGED AGAIN DR. BORDEN REGARDING HEMOGLOBIN, HYPOTENSION AND CHANGE IN CONDITION.
--- NOTE | 2020-04-02 09:18 | NUR ---
returned call Dr. BORDEN returned call, updated on patient status and reason for call, orders received. Continue care.
[2020-04-02] MEDS: POTASSIUM CHL 10 Meq TABLET PO SCH (10:00)
--- NOTE | 2020-04-02 10:00 | NUR ---
HYPOTENSION PAGED MD FOR ORDERS.
--- NOTE | 2020-04-02 10:00 | NUR ---
HEATING MEASURES ARE CONTINUING DUE TO HYPOTHERMIA.
[2020-04-02] MEDS ORDERED: VASOPRESSIN 20 UNIT/ML ONE (10:27)
[2020-04-02] MEDS ORDERED: VASOPRESSIN 50 UNITS in D5W 5% 247.5 ML IV SCH (10:30)
--- NOTE | 2020-04-02 10:40 | NUR ---
PAGED REGARDING ABG RESULTS.
--- NOTE | 2020-04-02 10:50 | NUR ---
REPORT IS GIVEN TO JEMMA PAGAN.
--- NOTE | 2020-04-02 11:50 | NUR ---
Provider/Hospitalist at bedside Dr. Platt made rounds and saw pt. and made aware of pt.'s condition with 4 vasopressors on maximum dose for each vasopressor and unable to get a BP, pulses are weak by doppler, orders were made by .
[2020-04-02] MEDS ORDERED: PHYTONADIONE (VIT K)10 MG/ML 1ML VIAL SUBCUT ONE (12:00)
--- NOTE | 2020-04-02 12:20 | NUR ---
PT. Dr. Platt made aware pt. unable to get a pulse and BP, ordered to let pt. be and to not code him and let him go in peace. pronounced pt. @ [id number].
[2020-04-02] MEDS ORDERED: PIPERACILLIN-TAZOB 3.375GM 100 ML IV SCH (14:00)
[2020-04-03 10:04] LABS: Hemoglobin 6.3 g/dL (13.5-17.5)
== END 2020-04-02 12:12 | DRG 435 ==
LOC: EDUNIT# 14:43 → ER 14:43 → EDBD 14:43 → OVERFLOW 14:44 → EEVIPCON 14:44 → CENTRAL 22:54 → WEST WING 03-19 12:25 → CENTRAL 04-01 20:41 → CATH ICU 04-01 20:45
PROVIDERS: ADMIT Internal Medicine; ATTEND Internal Medicine
PROC: 0FB13ZX Excision of Right Lobe Liver, Percutaneous Approach, Diagnostic (ICD-10-PCS; principal; 2020-02-10)
PROC: 5A12012 Performance of Cardiac Output, Single, Manual (ICD-10-PCS; 2020-04-01)
PROC: 5A1935Z Respiratory Ventilation, Less than 24 Consecutive Hours (ICD-10-PCS; 2020-04-01)
PROC: 0BH17EZ Insertion of Endotracheal Airway into Trachea, Via Natural or Artificial Opening (ICD-10-PCS; 2020-04-01)
DX: C22.0 Liver cell carcinoma (principal); I81 Portal vein thrombosis; R18.8 Other ascites; E87.1 Hypo-osmolality and hyponatremia; Z68.1 Body mass index [BMI] 19.9 or less, adult; E44.0 Moderate protein-calorie malnutrition; C22.9 Malignant neoplasm of liver, not specified as primary or secondary; K74.60 Unspecified cirrhosis of liver; N20.0 Calculus of kidney; B18.2 Chronic viral hepatitis C; N40.0 Benign prostatic hyperplasia without lower urinary tract symptoms; I10 Essential (primary) hypertension; J44.9 Chronic obstructive pulmonary disease, unspecified; R19.7 Diarrhea, unspecified; F41.9 Anxiety disorder, unspecified; F32.9 Major depressive disorder, single episode, unspecified; Z20.828 Contact with and (suspected) exposure to other viral communicable diseases; Z80.0 Family history of malignant neoplasm of digestive organs; Z85.05 Personal history of malignant neoplasm of liver; F17.210 Nicotine dependence, cigarettes, uncomplicated
CPT/HCPCS: 10022; 36415; 36600; 70450; 71045; 74150; 74176; 74177; 76700; 77012; 80048; 80053; 81001; 82105; 82140; 82150; 82378; 82805; 82962; 83690; 83735; 84484; 85025; 85610; 85730; 86301; 86850; 86900; 86901; 86920; 87070; 87077; 87081; 87186; 87205; 87426; 93005; 94002; 94003; 96365; 97110; 97116; 97163; 97530; C9113; G0378; J0330; J0610; J1815; J2250; J2405; J2704; J3430; J7060